=== PATIENT | male | born 1935 | race Caucasian/White ===

== ENCOUNTER → 2016-03-21 | Outpatient (CLI) | payer OTHER, MEDICARE ==
[~2016-03-21] MED LIST: ALL100 PO; ASPEC325 PO; ATOR10TA88 PO; METO50TA16 PO; MULT-506 PO; Pradaxa PO
[2016-03-21 13:12] LABS: BASO % 1.2 %; BASO ABS # 0.06 K/uL (0-0.2); COMPLETE YES; EOS % 2.5 %; HEMATOCRIT 45.5 % (42-52); LYMPH % 29.6 %; LYMPH ABS # 1.44 K/uL (1.2-3.4); MEAN CELL VOLUME 93.2 fL (80-100); MEAN CORPUSCULAR HGB CONC 34.3 g/dl (32-36); MONO % 9.9 %; NEUT % 56.8 %; PLATELET COUNT 176 K/uL (130-400); RED BLOOD COUNT 4.88 M/uL (4.7-6.1); WHITE BLOOD COUNT 4.86 K/uL (4.8-10.8)
[2016-03-21 13:27] LABS: ALT/SGPT 25 U/L (12-78); AST/SGOT 20 U/L (15-37); BLOOD UREA NITROGEN 16 mg/dl (7-18); BUN/CREATININE RATIO 15.9 (10-20); CALCIUM 9.2 mg/dl (8.5-10.1); CARBON DIOXIDE 28 mmol/L (21-32); CHLORIDE 106 mmol/L (98-107); CHOLESTEROL 177 mg/dl (0-200); GLUCOSE 108 mg/dl (70-99); POTASSIUM 4.3 mmol/L (3.5-5.1); SODIUM 142 mmol/L (136-145)
[2016-03-21 13:40] LABS: ALKALINE PHOSPHATASE 60 U/L (45-117); CHOLESTEROL/HDL RATIO 3.5; HDL CHOLESTEROL 50 mg/dl; LDL CHOLESTEROL CALCULATED 102 mg/dl; TRIGLYCERIDES 124 mg/dl (0-150); VERY LOW DENSITY LIPOPROT CALC 25 mg/dl
== END | disposition home or self-care (01) ==
LOC: C.LABBC 10:31
PROVIDERS: ATTEND Internal Medicine
DX: E78.5 Hyperlipidemia, unspecified (principal)

== ENCOUNTER → 2017-03-29 | Outpatient (CLI) | payer OTHER, MEDICARE ==
[~2017-03-29] MED LIST changes: +ATOR10TA82 PO; -ATOR10TA88 PO
--- NOTE | 2017-03-29 12:04 | DIAGNOSTIC IMAGING REPORT ---
CHEST 2 VIEWS ROUTINE CLINICAL HISTORY: Pneumonia COMPARISON STUDY: 02/22/2011 FINDINGS: The cardiac and mediastinal contours are normal. There is no evidence of focal pulmonary consolidation. There is no evidence of failure. No pleural effusions are visualized.[ IMPRESSION: No active disease in the chest. Electronically signed by: Luis Hill M.D. 03/29/2017 12:03 PM Dictated Date/Time: 03/29/2017 12:02 PM
== END | disposition home or self-care (01) ==
LOC: C.RADBC 11:09
PROVIDERS: ATTEND Internal Medicine
DX: Z87.01 Personal history of pneumonia (recurrent) (principal)

== ENCOUNTER 2024-12-20 11:29 | Inpatient (IN) ==
[2024-12-20] MEDS ORDERED: MAGNESIUM HYDROXIDE SUSP 30 ML UDC PO PRN (14:12)
[2024-12-20] MEDS ORDERED: ONDANSETRON INJ 2 MG/ML 2 ML VIAL IV PRN ×2 (14:12→15:25)
[2024-12-20] MEDS ORDERED: ALUMINUM/MAGNESIUM SUSP 30 ML UDC PO PRN (14:12)
[2024-12-20] MEDS ORDERED: POLYETHYLENE (MIRALAX) 17 GM PACK PO PRN (14:12)
[2024-12-20] MEDS ORDERED: PROPOFOL IV EMULSION 10 MG/ML 20 ML VIAL IV ONE (14:36)
[2024-12-20] MEDS ORDERED: LIDOCAINE 2% 2 ML VIAL/AMP(20MG/ML) INFIL ONE (14:36)
--- NOTE | 2024-12-20 14:45 | History & Physical Report ---
Date of Service December 20, 2024 Assessment & Plan (1) Ureterolithiasis: (2) Cardiomyopathy: (3) Heart failure with reduced ejection fraction: (4) Dementia: (5) TIA (transient ischemic attack): Plan #Ureterolithiasis with hydroureterfor urologic intervention today. Continue ceftriaxone for now, follow-up cultures from [facility] and follow his evolution of signs and symptoms. #Atrial fibrillationrate controlled. Chronically anticoagulated. [facility] I believe held his Eliquis. Can resume postop as soon as is safe per urology #chronic systolic CHFhe appears to have a moderately reduced EF. Follows with [facility] cardiology, and fortunately this does not seem to be extremely brittle. He also has a degree of diastolic/HFpEF creating a combined CHF picture given his moderate aortic stenosis, but he does not appear to have frequent hospitalizations for decompensated CHFAlthough he did have an admission at [facility] in late September that did have at least some element of decompensated CHF. resume sacubitril/valsartan once it is clear his hemodynamics are stable as they appear today. #Dementiafollows with PCP and neurologyappears to be assessed as a mixed aging and vascular dementia that is relatively mild with some mild Parkinson's features. Continue to follow mental status while hospitalized #anxietycontinue SSRI #DVT prophylaxisresume Eliquis as soon as is safe postprocedure. #cerebrovascular disease - continue statin Admission and Anticipated Discharge Date Admission Date: December 20, 2024 History of Present Illness Chief Complaint: 9mm ureteral stone, no urology at [facility] Primary Care Provider: Robert Berry DO Patient is a very pleasant 89-year-old male who was transferred to our facility due to a 9 mm kidney stone and lack of urology at [facility]. He was apparently also set for transfer to [facility], but patient and family would prefer staying in [place], understandably. He presented yesterday with a chief complaint of right flank pain. Symptom onset about 8 hours prior to ER evaluation. Tylenol provided mild relief. No fevers dysuria or hematuria. Previously had stones requiring urologic intervention and noted this felt similar. Today on arrival he notes his pain is under good control. He denies any fevers chills or sweats. Denies any chest pain or shortness of breath. Was treated with pain control and ceftriaxone due to concern of infection, started on Flomax. Allergies Allergy/AdvReac Type Severity Reaction Status Date / Time hydrocodone Allergy Unknown Unknown Verified 11/17/24 08:46 Home Medications Medication Instructions Recorded Confirmed Type apixaban 5 mg tablet (Eliquis) 5 mg PO BID #60 tabs 10/10/20 11/13/24 Rx escitalopram oxalate 10 mg tablet 10 mg PO DAILY 10/05/21 11/13/24 History tamsulosin 0.4 mg capsule 0.4 mg PO DAILY 10/05/21 11/13/24 History acetaminophen 325 mg capsule 325 mg PO QID PRN Pain 05/16/22 11/13/24 History (Tylenol) compress.stocking,knee,reg,med #2 ea 03/29/23 11/04/24 Rx gabapentin 300 mg capsule 300 mg PO DAILY 04/01/23 11/13/24 History compress.stocking,knee,reg,med #2 ea 07/03/23 11/04/24 Rx cetirizine 10 mg tablet 10 mg PO DAILY 02/06/24 11/13/24 History lidocaine HCl 4 % topical cream 1 applic topical BID 10/21/24 11/13/24 History (Aspercreme (lidocaine HCl)) omeprazole 40 mg capsule,delayed 40 mg PO DAILY 10/21/24 11/13/24 History release rosuvastatin 10 mg tablet 10 mg PO DAILY 10/21/24 11/13/24 History Al hyd-Mg tr-alg ac-sod bicarb 80 2 tab PO Q4H PRN Acid Reflux 11/13/24 11/13/24 History mg-20 mg chewable tablet cranberry extract 250 mg tablet 250 mg PO TID 11/13/24 11/13/24 History sacubitril 24 mg-valsartan 26 mg 1 tab PO BID 11/13/24 11/13/24 History tablet torsemide 20 mg tablet 20 mg PO Q OTHER DAY 11/13/24 11/13/24 History vitamin B complex 1 tab PO DAILY 11/13/24 11/13/24 History Past Med/Surg History Problem List (Updated 12/20/24 @ 14:45 by Lucien Maradiaga DO) Ureterolithiasis Cardiomyopathy Severe aortic stenosis HLD (hyperlipidemia) HTN, goal below 130/80 Heart failure with reduced ejection fraction Dysphagia Dysphonia Parkinsonism Trigger finger Aortic stenosis Idiopathic polyneuropathy Numbness and tingling in both hands Dementia Cognitive impairment Ambulatory dysfunction Cerebrovascular disease Rotator cuff tear, right COVID-19 (Acute) (HFpEF) heart failure with preserved ejection fraction TIA (transient ischemic attack) Sleep disturbances (Chronic) Sinus bradycardia (Chronic) Sick sinus syndrome (Chronic) Permanent atrial fibrillation (Chronic) Nephrolithiasis (Chronic) Mitral regurgitation (Chronic) 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 Trigger finger TIA (transient ischemic attack) Severe aortic stenosis Parkinsonism Mitral regurgitation Idiopathic polyneuropathy HFrEF (heart failure with reduced ejection fraction) Dysphonia Dysphagia History of COVID-19 Cognitive impairment Gout SSS (sick sinus syndrome) Hx of renal calculi CVD (cerebrovascular disease) Dementia Unspecified hearing loss Sleep disorder Paresthesia of skin Nonrheumatic mitral (valve) insufficiency Hyperlipidemia Difficulty walking Generalized anxiety disorder Carpal tunnel syndrome Bradycardia Atrial fibrillation Sprain of knee Surgical History History of tonsillectomy History of cystoscopy Family History Mother Stroke Myocardial infarction Father Coronary heart disease Kidney disease Aunt Breast cancer Denies family history of Prostate cancer Diabetes Lung cancer Colorectal cancer Social History Smoking Status: Unknown if ever smoked Tobacco Type: Cigars Preferred Language: Unknown Communication Ability: Effective Visual Impairment: Limited Hearing Ability: Normal P[place] Required: No marital status: Current Living Situation: Personal Care Facility Current Living Situation Comment: [facility] current occupational status: retired and 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 HEENT normocephalic atraumatic mucous membranes moist. Cardio is irregularly irregular but rate controlled (rate around 80 whenever I listen to him). Lungs are clear to auscultation bilaterally no rales rhonchi or wheezes good effort. No accessory muscle use. Abdomen is soft nondistended nontender no masses or organomegaly. Extremities are without sinus clubbing or edema no calf tenderness. Neuro shows no focal deficits. Skin without rashes, pallor, icterus. Results & Data Results & Data Diagnostic Findings CT abdomen pelvis from [facility] shows normal liver, normal gallbladder, normal pancreas normal spleen normal appendix, kidneys normal size shape and position bilateral perinephric stranding noted, bilateral nonobstructing renal calculi the largest at the left lower pole measuring 8 mm, and right sided moderate hydro nephro ureter due to a 9 mm calculus in the terminal ureter, left-sided periureteral stranding noted. Aorta shows atherosclerotic changes with an infrarenal focal aneurysms 30 x 26 mm normal prostate, fecal loaded large bowel no bowel obstruction or wall thickening diffuse mesenteric stranding and congestion noted and the slices through the chest show cardiomegaly bilateral peribronchial cuffing and mild bronchiectatic changes. Conclusions being #1 right sided obstructive uropathy due to a distal ureteric stone, #2 bilateral nonobstructing renal calculi. #3 bilateral perinephric and periureteral fat stranding. #4 thick-walled urinary bladder with perivesical fat stranding. #5 enlarged prostate. #6 cardiomegaly with bilateral peribronchial cuffing and mild bronchiectatic changes. PG Care Time/CCT Total # of Minutes Spent Total Time Spent with Patient: Total time spent is greater than 50% in coordination of care (as documented) at patient's floor/unit and/or counseling patient: Coding Level of Care Code 16495 INT INP/OBS CARE 3/75MIN Diagnoses Ureterolithiasis N20.1 Cardiomyopathy I42.9 Heart failure with reduced ejection fraction I50.20 Dementia F03.90 TIA (transient ischemic attack) G45.9
--- NOTE | 2024-12-20 15:19 | Urology Consultation ---
Date of Consultation December 20, 2024 Assessment & Plan (1) Ureterolithiasis: We reviewed the stone seen on his CT scan. It is large enough that it is not likely to pass spontaneously. With the concern for any possible underlying infection, we discussed that an obstructing stone could significantly increase the risk for sepsis. Due to his need for narcotics for pain control, I would recommend that we proceed with cystoscopy, right retrograde pyelogram and right ureteral stent placement. We reviewed risks of surgery including bleeding, infection, injury to urinary tract, inability to place a stent. He and his daughter expressed understanding and would like to proceed with surgery. All questions were answered to the best of my ability. History of Present Illness Reason for Consultation: right ureteral stone Attending Physician: Lucien Maradiaga, History of Present Illness This is an 89-year-old male with history of nephrolithiasis. He has previously undergone surgeries for kidney stones. He started having right-sided flank pain on 12/19/2024 and was brought to an outside facility where workup demonstrated a distal right ureteral stone. Per report, he had a leukocytosis (WBC 14) at the outside facility. Also per report, urine sample demonstrated inflammatory markers raising concern for potential underlying infection. He was started on ceftriaxone at the outside facility and cultures were obtained. He was transferred to [facility] for consideration of surgical intervention. At the bedside he reports that his pain is better controlled with narcotics on board, however he and his daughter report that he does not do well with multiple doses of narcotics. He denies any fevers or chills, although he has had episodes of sepsis from urinary stones in the past. He has recently been on antibiotics for a hand infection as well. He had a CT scan of the abdomen and pelvis performed on 12/20/2024. I independently reviewed these images. Both kidneys are in normal position with mild cortical thinning. There is hydronephrosis of the right side extending down to an 8-9 mm stone in the distal right ureter. Bladder wall appears circumferentially thickened and prostate is normal-appearing. In both kidneys there are nonobstructing stones as well. Allergies Allergy/AdvReac Type Severity Reaction Status Date / Time hydrocodone Allergy Unknown Unknown Verified 11/17/24 08:46 Home Medications Medication Instructions Recorded Confirmed Type apixaban 5 mg tablet (Eliquis) 5 mg PO BID #60 tabs 10/10/20 11/13/24 Rx escitalopram oxalate 10 mg tablet 10 mg PO DAILY 10/05/21 11/13/24 History tamsulosin 0.4 mg capsule 0.4 mg PO DAILY 10/05/21 11/13/24 History acetaminophen 325 mg capsule 325 mg PO QID PRN Pain 05/16/22 11/13/24 History (Tylenol) compress.stocking,knee,reg,med #2 ea 03/29/23 11/04/24 Rx gabapentin 300 mg capsule 300 mg PO DAILY 04/01/23 11/13/24 History compress.stocking,knee,reg,med #2 ea 07/03/23 11/04/24 Rx cetirizine 10 mg tablet 10 mg PO DAILY 02/06/24 11/13/24 History lidocaine HCl 4 % topical cream 1 applic topical BID 10/21/24 11/13/24 History (Aspercreme (lidocaine HCl)) omeprazole 40 mg capsule,delayed 40 mg PO DAILY 10/21/24 11/13/24 History release rosuvastatin 10 mg tablet 10 mg PO DAILY 10/21/24 11/13/24 History Al hyd-Mg tr-alg ac-sod bicarb 80 2 tab PO Q4H PRN Acid Reflux 11/13/24 11/13/24 History mg-20 mg chewable tablet cranberry extract 250 mg tablet 250 mg PO TID 11/13/24 11/13/24 History sacubitril 24 mg-valsartan 26 mg 1 tab PO BID 11/13/24 11/13/24 History tablet torsemide 20 mg tablet 20 mg PO Q OTHER DAY 11/13/24 11/13/24 History vitamin B complex 1 tab PO DAILY 11/13/24 11/13/24 History Patient History Medical History [facility] resident [place] [facility] Trigger finger TIA (transient ischemic attack) Severe aortic stenosis Parkinsonism Mitral regurgitation Idiopathic polyneuropathy HFrEF (heart failure with reduced ejection fraction) Dysphonia Dysphagia History of -19 Cognitive impairment Gout SSS (sick sinus syndrome) Hx of renal calculi CVD (cerebrovascular disease) Dementia Unspecified hearing loss Sleep disorder Paresthesia of skin Nonrheumatic mitral (valve) insufficiency Hyperlipidemia Difficulty walking Generalized anxiety disorder Carpal tunnel syndrome Bradycardia Atrial fibrillation Sprain of knee Surgical History History of tonsillectomy History of cystoscopy Family History Mother Stroke Myocardial infarction Father Coronary heart disease Kidney disease Aunt Breast cancer Denies family history of Prostate cancer Diabetes Lung cancer Colorectal cancer Social History Smoking Status: Current some day smoker Tobacco Type: Cigars Cigarettes Per Day: 5 cigars per week; Second Hand Exposure: No; Do You Dip or Chew Tobacco: No; Tobacco Cessation Education Requested by Patient: No Hx Alcohol Use: Yes Alcohol type: beer, wine and hard liquor Alcohol Intake Frequency Comment: social Hx Substance Use: No Preferred Language: Serbian Communication Ability: Effective Visual Impairment: Limited Hearing Ability: Normal Senior Ssis Developer Required: No Beliefs That Will Affect Care: None marital status: Current Living Situation: Alone and Personal Care Facility Current Living Situation Comment: [facility] current occupational status: retired and 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 Physical Exam Constitutional: well developed and well nourished; no acute distress Eyes: + anicteric sclerae; pupils not irregula r Respiratory: normal respiratory effort; no respiratory distress, does not use accessory muscles and no cough Cardiovascular: well perfused Gastrointestinal (Abdomen): Inspection/Auscultation: abdomen normal to inspection; abdomen not distended Musculoskeletal: Extremities: extremities normal to inspection Skin: normal turgor; no rashes and no lesions Neurologic: moves all extremities and awake Psychiatric: Orientation: alert and oriented x 3 Results & Data Vital Signs (Past 12 Hours) Vital Signs Temp Pulse Resp BP Pulse Ox O2 Del Method 12/20/24 14:17 36.3 C L 99 H 16 109/72 93 Room Air PG Care Time/CCT Total # of Minutes Spent Total Time Spent with Patient: Total time spent is greater than 50% in coordination of care (as documented) at patient's floor/unit and/or counseling patient: Coding Level of Care Code 80852 OP VST NEW MOD 45 MIN Diagnoses Ureterolithiasis N20.1
--- NOTE | 2024-12-20 15:21 | Anesthesiology Consultation ---
Date of Service December 20, 2024 Assessment & Plan (1) Encounter for pre-operative examination: Chart Review Chart Review: Acceptable Risk for Surgery History Surgery Operation Date: 12/20/24 15:00 Proposed Procedures p Cystoscopy Retrograde(Right) - Macho Mantilla MD Height/Weight Height: 5 ft 8 in Weight: 74.843 kg Allergies Allergy/AdvReac Type Severity Reaction Status Date / Time hydrocodone Allergy Unknown Unknown Verified 11/17/24 08:46 Medications Home Medications Medication Instructions Recorded Confirmed Last Taken apixaban 5 mg tablet (Eliquis) 5 mg PO BID #60 tabs 10/10/20 11/13/24 11/16/24 escitalopram oxalate 10 mg tablet 10 mg PO DAILY 10/05/21 11/13/24 11/16/24 tamsulosin 0.4 mg capsule 0.4 mg PO DAILY 10/05/21 11/13/24 11/16/24 acetaminophen 325 mg capsule 325 mg PO QID PRN Pain 05/16/22 11/13/24 Unknown (Tylenol) compress.stocking,knee,reg,med #2 ea 03/29/23 11/04/24 Unknown gabapentin 300 mg capsule 300 mg PO DAILY 04/01/23 11/13/24 11/16/24 compress.stocking,knee,reg,med #2 ea 07/03/23 11/04/24 Unknown cetirizine 10 mg tablet 10 mg PO DAILY 02/06/24 11/13/24 11/16/24 lidocaine HCl 4 % topical cream 1 applic topical BID 10/21/24 11/13/24 11/16/24 (Aspercreme (lidocaine HCl)) omeprazole 40 mg capsule,delayed 40 mg PO DAILY 10/21/24 11/13/24 11/16/24 release rosuvastatin 10 mg tablet 10 mg PO DAILY 10/21/24 11/13/24 11/16/24 Al hyd-Mg tr-alg ac-sod bicarb 80 2 tab PO Q4H PRN Acid Reflux 11/13/24 11/13/24 Unknown mg-20 mg chewable tablet cranberry extract 250 mg tablet 250 mg PO TID 11/13/24 11/13/24 11/16/24 sacubitril 24 mg-valsartan 26 mg 1 tab PO BID 11/13/24 11/13/24 11/16/24 tablet torsemide 20 mg tablet 20 mg PO Q OTHER DAY 11/13/24 11/13/24 11/16/24 vitamin B complex 1 tab PO DAILY 11/13/24 11/13/24 11/16/24 Past Medical History Medical History (Updated 12/20/24 @ 15:22 by Pedro Ibarra MD) Hypertension long-term resident [facility] Trigger finger TIA (transient ischemic attack) Severe aortic stenosis Parkinsonism Mitral regurgitation Idiopathic polyneuropathy HFrEF (heart failure with reduced ejection fraction) Dysphonia Dysphagia History of COVID-19 Cognitive impairment Gout SSS (sick sinus syndrome) Hx of renal calculi CVD (cerebrovascular disease) Dementia Unspecified hearing loss Sleep disorder Paresthesia of skin Nonrheumatic mitral (valve) insufficiency Hyperlipidemia Difficulty walking Generalized anxiety disorder Carpal tunnel syndrome Bradycardia Atrial fibrillation Sprain of knee Past Family History Family History Mother Stroke Myocardial infarction Father Coronary heart disease Kidney disease Aunt Breast cancer Denies family history of Prostate cancer Diabetes Lung cancer Colorectal cancer Past Surgical History Surgical History History of tonsillectomy History of cystoscopy Social History Smoking Status: Current some day smoker Smoking cigarettes per day: 5 cigars per week Do You Dip or Chew Tobacco: No Hx Alcohol Use: Yes Alcohol type: beer, wine and hard liquor alcohol intake frequency: holidays/special occasions only Hx Substance Use: No substance use type: does not use Physical Exam Vital Signs Last Vital Signs Temp 36.3 C L 12/20/24 14:17 Pulse 99 H 12/20/24 14:17 Resp 16 12/20/24 14:17 BP 109/72 12/20/24 14:17 Pulse Ox 93 12/20/24 14:17 O2 Del Method Room Air 12/20/24 14:17 Testing Echocardiogram Date: 11/04/24 EF: 40-45% Valvular Disease: + (moderate - max grad 21mmHg)
[2024-12-20] MEDS ORDERED: ATROPINE SULFATE 0.1 MG/ML 10ML SYR IV PRN (15:25)
--- NOTE | 2024-12-20 16:09 | Operative Report ---
PG Post Operative Report Pre & Post Diagnosis Operation Date: 12/20/24 15:00 Pre-Op Diagnosis: Ureteral lithiasis Post-Op Diagnosis: Ureteral lithiasis I identified the patient and participated in the time-out.: Yes Procedure Operation Date: 12/20/24 15:00 Actual Procedures p Cystoscopy, Right Retrograde Pyelogram, Insertion of Ureteral Stent- Right(Right) - Macho Mantilla MD Surgeon Macho Mantilla MD Churn Driller None Estimated Blood Loss 0 Findings See Below Successful right ureteral stent placement. Urine in the bladder with some blood. Dark red/maroon urine from the right kidney aspirated and sent for culture. Specimens Urine from right kidney for culture Drains 6 Polish x 26 cm double-J ureteral stent in the right ureter Anesthesia Type MAC Complications none Disposition Accompanied Patient To Recovery: Yes Disposition: Recovery Room Indications This is an 89-year-old male who was transported to [facility] with a right ureteral stone as well as ongoing pain and concern for possible underlying urinary tract infection. He is brought to the OR for right ureteral stent placement. Description of Procedure The patient was identified in the holding area and informed consent was confirmed. He was marked on the right side, then was taken to the operating room where anesthesia was initiated. He was placed in the dorsal lithotomy position with all pressure points appropriately padded. He was prepped and draped in the usual sterile fashion and a preoperative timeout was performed. A well-lubricated cystoscope was inserted per urethra and panendoscopy was performed. The pendulous urethra was normal with no strictures or mucosal abnormalities. The prostate was of normal size. The initial urine from the bladder was dark maroon. This was evacuated and the bladder was flushed to improve visualization. His bladder was trabeculated with no tumors or stones appreciated. Ureteral orifices were in orthotopic position bilaterally. I used a 0.038 inch zip wire and 5 Polish open-ended catheter to cannulate the right ureteral orifice. The open-ended catheter was advanced to approximately the level of the kidney. A sample of urine was aspirated at this point. The urine from this area was also dark maroon. A sample was collected and sent for urine culture. Retrograde pyelogram was performed through the open-ended catheter using Cystografin. There was mild hydronephrosis of the kidney. The zip wire was then reintroduced. Over the wire, a 6 Polish x 26 cm double-J ureteral stent was advanced. When the wire was removed, there was a good curl in the kidney under fluoroscopic guidance. There was drainage of cloudy/maroon urine from the kidney down to the bladder. A curl of the stent was visualized in the bladder with the cystoscope. At this point the bladder was drained and all instrumentation was removed. The patient was then awakened from anesthesia and was brought to the PACU in stable condition. I attest to the content of the Intraoperative Record and any orders documented therein. Any exceptions are noted below.
[2024-12-20] MEDS: DIATRIZOATE MEGLUMINE 30% 100ML VIAL INSTIL ONE (16:10)
--- NOTE | 2024-12-20 16:28 | Anesthesiology Progress Note ---
Date of Service December 20, 2024 Anesthesia Post Procedure Vital Signs Vital Signs: Temp Pulse Pulse Resp BP Pulse Ox O2 Del Method 12/20/24 16:23 36.4 C L 89 23 102/65 97 Room Air 12/20/24 16:15 86 22 109/84 96 Room Air 12/20/24 16:07 36.3 C L 82 14 112/72 95 Room Air 12/20/24 14:17 36.3 C L 99 H 16 109/72 93 Room Air Transfer of Care Handoff Completed per policy Notes Mental Status: alert / awake / arousable Patient Amnestic to Procedure: Yes Nausea / Vomiting: adequately controlled Pain: adequately controlled Airway Patency, RR, SpO2: stable & adequate BP & HR: stable & adequate Hydration State: stable & adequate Anesthetic Complications: no major complications apparent
[2024-12-20 16:49] VITALS: RESP 18
[2024-12-20] MEDS: cefTRIAXone SODIUM 2,000 MG/50 ML BAG IV SCH (16:50)
[2024-12-20] MEDS: MELATONIN 3 MG TAB PO PRN (20:19)
[2024-12-20] MEDS: VALSARTAN/SACUBITRIL 26/24MG TAB PO SCH (20:19)
[2024-12-20] MEDS: APIXABAN 5 MG TABLET PO SCH (20:19)
[2024-12-21] MEDS: ACETAMINOPHEN 325 MG TAB PO PRN (03:38)
[2024-12-21 06:20] LABS: Hematocrit (blood only) 38.6 % (42.0-52.0); Hemoglobin 12.2 g/dl (14.0-18.0); Immature Granulocytes # (auto) 0.02 K/uL (0.01-0.20); Immature Granulocytes % (auto) 0.2 %; Mean Corpuscular Hemoglobin 27.9 pg (25.0-34.0); Mean Corpuscular Volume 88.1 fL (80.0-100.0); Platelet Count 195 K/uL (130-400); RDW Standard Deviation 51.0 fL (36.4-46.3); Red Blood Count 4.38 M/uL (4.70-6.10); White Blood Count 8.38 K/ul (4.8-10.8)
[2024-12-21 07:17] LABS: Anion Gap 7.0 (3-11); Blood Urea Nitrogen 18.0 mg/dl (6-23); Calcium 8.7 mg/dl (8.6-10.3); Carbon Dioxide 25.0 mmol/L (21-32); Chloride 106.0 mmol/L (98-107); Creatinine Clr Calc Pharmacy 50.9 ml/min; Glucose 100.0 mg/dl (70-99(Fasting)); Potassium 4.2 mmol/L (3.5-5.1); Sodium 138.0 mmol/L (136-145)
[2024-12-21] MEDS: GABAPENTIN 300 MG CAP PO SCH (08:18)
[2024-12-21] MEDS: CETIRIZINE HCL 10 MG TABLET PO SCH (08:18)
[2024-12-21] MEDS: ROSUVASTATIN CALCIUM 10 MG TAB PO SCH (08:18)
[2024-12-21] MEDS: ESCITALOPRAM OXALATE 10 MG TAB PO SCH (08:18)
[2024-12-21] MEDS: TAMSULOSIN HCL 0.4 MG CAP PO SCH (08:18)
[2024-12-21] MEDS: METOPROLOL SUCC 25MG EXT REL TAB PO SCH (08:22)
--- NOTE | 2024-12-21 11:51 | Fluoroscopy Report ---
FL retrograde includes kub CLINICAL HISTORY: RT SIDE CYSTO STENT COMPARISON STUDY: None FLUOROSCOPY TIME: 3 seconds FLUOROSCOPY IMAGES: 3 EXPOSURE DOSE: 0.7 mGy FINDINGS: Fluoroscopy was provided for urologic procedure. IMPRESSION: Intraoperative fluoroscopy. ACT 112: Negative or not required by law. Electronically signed by: William Delacruz M.D. 12/21/2024 11:50 AM
[2024-12-21] MEDS: PHENAZOPYRIDINE HCL 100 MG TAB PO PRN (13:03)
--- NOTE | 2024-12-21 15:25 | Urology Progress Note ---
<Statement entered by Macho Mantilla MD - 12/21/24 15:48> 89-year-old male s/p ureteral stent placement on 12/20/2024. Continue to follow urine cultures, agree with fluconazole for now. No plan for further intervention at this point. Urology will arrange outpatient follow-up. Date of Service December 21, 2024 Assessment & Plan (1) Ureterolithiasis: Plan Postop day #1 status post cystoscopy and right ureteral stent placement Tolerating the stent with minimal bother Afebrile and hemodynamically stable Labs show no leukocytosis and creatinine 0.99 Urine kidney aspirate preliminary Orly albicans - Fluconazole added today Continues on ceftriaxone Will arrange outpatient follow-up with our service to discuss definitive stone treatment. Continue antibiotics and tailor per culture sensitivities Continue supportive care and management per primary team Urology will sign off, please contact us with any further question/concerns or changes in patient status Admission and Anticipated Discharge Date Admission Date: December 20, 2024 Subjective Patient was seen at bedside this morning. Awake and resting in bed on arrival. No acute distress. Tolerating the stent with minimal bother. No fevers or chills. Review of Systems Constitutional: as per Subjective / HPI Genitourinary: + as per Subjective / HPI Physical Exam Constitutional: no acute distress Respiratory: no respiratory distress and no labored breathing Neurologic: awake Psychiatric: Orientation: alert, oriented x 3 and cooperative Results & Data Vital Signs (Past 12 Hours) Vital Signs Temp Pulse Pulse Resp BP Pulse Ox O2 Del Method 12/21/24 13:45 78 12/21/24 12:37 36.4 C L 86 18 109/76 95 Room Air 12/21/24 08:00 104 H 12/21/24 08:00 36.5 C 77 18 113/78 95 Room Air 12/21/24 03:45 36.6 C 103 H 18 130/89 94 Room Air PG Care Time/CCT Total # of Minutes Spent Total Time Spent with Patient: Total time spent is greater than 50% in coordination of care (as documented) at patient's floor/unit and/or counseling patient: Coding Level of Care Code 61251 SUB INP/OBS CARE 2/35MIN Diagnoses Ureterolithiasis N20.1
--- NOTE | 2024-12-21 16:31 | Hospitalist Progress Note ---
Date of Service December 21, 2024 Assessment & Plan (1) Ureterolithiasis: (2) Cardiomyopathy: (3) Heart failure with reduced ejection fraction: (4) Dementia: (5) TIA (transient ischemic attack): (6) Complicated UTI (urinary tract infection): (7) Candidal UTI (urinary tract infection): Plan #Ureterolithiasis with hydroureter - S/p stent placement with Dr. Mantilla. Urine culture growing Orly albicans - start on Fluconazole, discontinue ceftriaxone [facility] without Growth pyridium prn dysuria PT/OT for return to [facility] #Atrial fibrillation Continue Eliquis Concern regarding metoprolol and dose - patient has been on and off of this. Discussed with cardiology reecommend metoprolol succ 25mg daily. Daughter requesting cardiology consultation - discussed with them and they will speak to her #chronic systolic CHFhe appears to have a moderately reduced EF and aortic stenosis. Follows with [facility] cardiology, continue sacubitril/valsartan #Dementiafollows with PCP and neurologyappears to be assessed as a mixed aging and vascular dementia that is relatively mild with some mild Parkinson's features. Continue to follow mental status while hospitalized #anxietycontinue SSRI #cerebrovascular disease - continue statin Dispo: contiunued inpatient stay, PT eval pending, hopeful d/c to [facility] tomorrow DVT proh: Eliquis Discussed with cardiology Daughter updated by phone 12/21 Admission and Anticipated Discharge Date Admission Date: December 20, 2024 Supervising Physician Co-Signing Physician Notes Attending Attestation - Chart reviewed, care plan d/w VISHAL Yang. I agree w/ the garg components of her documentation with the following addition - * complicated UTI 2nd to orly albicans * candidal UTI Darío Hough MD Subjective lying in bed - reports some pain with urination. Does report having stents in the past Called and spoke with daughter - she believes there may have been some miscommunication regarding his beta blockers. She thought he was taken off it, our last cardiology note says to continue at 50. She reports low HR at [facility]. Tele - Afib 100-140s, but has been 70-80s after administration of metoprolol Review of Systems Review of Systems: All systems reviewed & are unremarkable except as noted in Subjective Physical Exam Physical Exam: General: NAD, VS as above Resp: normal respiratory effort, lungs clear to auscultation CV: afib, no murmur, Abd: normal bowel sounds, non tender, soft Extremities: Moves all extremities, no edema Neuro: A&O x2 Skin: intact, no lesions noted Results & Data Results & Data Vital Signs (Past 12 Hours) Vital Signs Temp Pulse Pulse Resp BP Pulse Ox O2 Del Method 12/21/24 15:56 97.9 F 88 18 109/75 95 Room Air 12/21/24 15:31 97.5 F L 86 18 109/76 95 12/21/24 13:45 78 12/21/24 12:37 97.5 F L 86 18 109/76 95 Room Air 12/21/24 08:00 104 H 12/21/24 08:00 97.7 F 77 18 113/78 95 Room Air Laboratory Results cbc and chemistry reviewed PG Care Time/CCT Total # of Minutes Spent Total Time Spent with Patient: Total time spent is greater than 50% in coordination of care (as documented) at patient's floor/unit and/or counseling patient: Coding Level of Care Code 99818 SUB INP/OBS CARE 3/50MIN Diagnoses Ureterolithiasis N20.1 Cardiomyopathy I42.9 Heart failure with reduced ejection fraction I50.20 Dementia F03.90 TIA (transient ischemic attack) G45.9 Complicated UTI (urinary tract infection) N39.0 Candidal UTI (urinary tract infection) B37.49
[2024-12-22 06:20] LABS: Anion Gap 6.0 (3-11); Blood Urea Nitrogen 16.0 mg/dl (6-23); Calcium 8.9 mg/dl (8.6-10.3); Carbon Dioxide 27.0 mmol/L (21-32); Chloride 104.0 mmol/L (98-107); Creatinine Clr Calc Pharmacy 49.9 ml/min; Glucose 117.0 mg/dl (70-99(Fasting)); Potassium 4.2 mmol/L (3.5-5.1); Sodium 137.0 mmol/L (136-145)
[2024-12-22] MEDS: FLUCONAZOLE 100 MG TAB PO SCH (09:18)
[2024-12-22] MEDS: TORSEMIDE 20 MG TAB PO SCH (09:20)
--- NOTE | 2024-12-22 12:06 | Discharge Summary ---
Discharge Summary Date of Service December 22, 2024 Principal Dx & Hospital Course #1 = Principal Diagnosis (1) Ureterolithiasis: (2) Cardiomyopathy: (3) Heart failure with reduced ejection fraction: (4) Dementia: (5) TIA (transient ischemic attack): (6) Complicated UTI (urinary tract infection): (7) Candidal UTI (urinary tract infection): Plan #Ureterolithiasis with hydroureter - S/p stent placement with Dr. Mantilla. Urine culture growing Maureen albicans - start on Fluconazole, plan for 14-day total course. No bacteria regular to culture so we will discontinue antibiotics. Can use Pyridium or Tylenol for pain control. Outpatient follow-up with urology for stone treatment. PT has cleared patient for [facility] #Atrial fibrillation - continue Eliquis. patient was taken off his beta- ricci but it seems there may have been a miscommunication, patient is in permanent A-fib and is at much lower risk of sick sinus syndrome. patient had an episode of tachycardia to the 140s with exertion. Discussed with cardiology recommend restarting metoprolol succinate 25 mg daily, patient's heart rate has been well-controlled since this initiation. New prescription sent and recommend cardiology follow-up in 4 to 6 weeks #chronic systolic CHFhe appears to have a moderately reduced EF and aortic stenosis. Follows with [facility] cardiology, continue sacubitril/valsartan. 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 mental status stable during inpatient stay #anxietycontinue SSRI #cerebrovascular disease - continue statin Dispo: [facility], outpatient cardiology and urology follow- up Notes For Next Care Provider Medication Changes From Visit started metoprolol 25 mg daily Admission HPI Per Admitting Provider Patient is a very pleasant 89-year-old male who was transferred to our facility due to a 9 mm kidney stone and lack of urology at [facility]. He was apparently also set for transfer to [facility], but patient and family would prefer staying in [place], understandably. He presented yesterday with a chief complaint of right flank pain. Symptom onset about 8 hours prior to ER evaluation. Tylenol provided mild relief. No fevers dysuria or hematuria. Previously had stones requiring urologic intervention and noted this felt similar. Today on arrival he notes his pain is under good control. He denies any fevers chills or sweats. Denies any chest pain or shortness of breath. Was treated with pain control and ceftriaxone due to concern of infection, started on Flomax. Discharge Exam General: NAD, VS as above Resp: normal respiratory effort, lungs clear to auscultation CV: afib, no murmur, Abd: normal bowel sounds, non tender, soft Extremities: Moves all extremities, no edema Neuro: A&O x2 Skin: intact, no lesions noted Discharge Plan Discharge Items Patient Disposition: Personal Custodial Reason For Visit: URETERAL LITHIASIS Discharge Diagnosis: Kidney stone - UTI Activity: Resume your previous activity Non-emergency contact: Primary Care Provider and Tub Rider Call non-emergency contact if: you have any medication questions, your symptoms worsen and your temperature is above 101 Follow-up/Referrals: Juan M Guillen MD [Physician] - (afib - follow up within 4-6 weeks ) Macho Mantilla MD [Physician] - 01/11/25 9:00 am (f/u for stone treatment ) Robert Berry DO [Primary Care Provider] - 12/28/24 2:00 pm (follow up within one week ) Diet: Heart Healthy Liquid Consistency: [place] thick Addtl Attending Provider Instructions: Mr. López You were hospitalized after having flank pain found to be from kidney stones. You were seen by urology and taken to the OR to have a stent placed on 12/[address] Mantilla. Your urine was also concerning for a fungal infection so you have been started on antifungals, these will be continued at discharge. You will need to follow up with urology for stent removal and stone treatment. Medication Changes/Recommendations: * Continue flomax daily while stent in place - this is to help with easier pass age of urine * Pyridium as needed for pain with urination - this can cause your urine/feces to be discolored/orange * Fluconazole - antifungal. Please take the entire course, even if you feel well. * Pain control - pyridium, tylenol as needed It is normal to still have discomfort in the flank area while the stent is in place, this pain may be worse with movement. Blood tinged urine can also be c ommon. If you are having persistent dark bloody urine or thick bloody urine for >8 hours please contact your urologist. It is important that you are staying hydrated while the stent is in place. The urology office should be contacting you to schedule and appointment. If you do not hear from them by Saturday please contact them at [phone] Please contact the urologist if you have any uncontrolled pain, fevers > 100F, or inability to urinate. There were also concerns about your heart rate - it was over 100s when you were moving around. We restarted your metoprolol at 25mg, which is lower than what you were on before. So far you heart rate has had great control while on this. Please follow up with Dr. Guillen in the next 4-6 weeks to recheck. You were cleared by PT to return back to [facility]. Activity: You can do normal everyday activities as your body allows. Take rest breaks if you feel tired. Do not overexert. Stop activity if you have pain, shortness of breath or feel dizzy. Follow-up appointments: Make an appointment with your primary care physician within one week of discharge. A copy of this summary will be sent to them. Every time you see your primary care physician, or any other doctor, bring your medication list, and a list of questions. CONTACT YOUR PRIMARY CARE PROVIDER if you experience any of the following: Shortness of breath or difficulty breathing Fevers or chills Feeling tired with normal activity or experiencing dizziness or fainting Difficulty following your treatment plan, or difficulty taking medications CALL 911 OR GO TO THE EMERGENCY DEPARTMENT if you experience any of the following: Severe abdominal pain or nausea/vomiting Severe chest pain, or chest pain that radiates (moves) to your jaw or arm Sudden, severe shortness of breath or difficulty breathing Thank you for allowing us to participate in your care. Pending Studies at Discharge: No Stand-Alone Forms: My [employer], Smoking Cessation Skilled Items Patient informed of condition?: Yes DNR: No Discharge Level of Care: Other Communicable Disease: No Discharge Prognosis: Stable Lines: None Urinary Catheter: No Medications and DC Order Prescriptions: New phenazopyridine [Pyridium] 100 mg Tablet 100 mg PO TID PRN (Reason: dysuria) Qty: 6 0RF Continued Eliquis 5 mg tablet 5 mg PO BID Qty: 60 5RF (DME) compress.stocking,knee,reg,med Misc See Rx Instructions .Route Qty: 2 0RF Rx Instructions: As directed (DME) compress.stocking,knee,reg,med Misc See Rx Instructions .Route Qty: 2 0RF Rx Instructions: As directed acetaminophen [Tylenol] 325 mg capsule 325 mg PO QID PRN (Reason: Pain) tamsulosin 0.4 mg capsule 0.4 mg PO DAILY escitalopram oxalate 10 mg tablet 10 mg PO DAILY gabapentin 300 mg capsule 300 mg PO DAILY omeprazole 40 mg capsule,delayed release(DR/EC) 40 mg PO DAILY rosuvastatin 10 mg tablet 10 mg PO DAILY lidocaine HCl [Aspercreme (lidocaine HCl)] 4 % cream 1 applic topical BID torsemide 20 mg tablet 20 mg PO Q OTHER DAY vitamin B complex Tablet 1 tab PO DAILY Al hyd-Mg tr-alg ac-sod bicarb 80-20 mg Tablet,Chewable 2 tab PO Q4H PRN (Reason: Acid Reflux) cranberry extract 250 mg Tablet 250 mg PO TID sacubitril-valsartan 24-26 mg Tablet 1 tab PO BID No Action doxycycline hyclate 100 mg capsule 100 mg PO BID 10 Days Qty: 20 0RF loratadine 10 mg tablet 10 mg PO QDAY PRN (Reason: allergy symptoms) Qty: 30 0RF metoprolol succinate 25 mg tablet extended release 24 hr 25 mg PO QAM Qty: 30 2RF Discharge Orders: Discharge Order (Routine); Ordered 12/22/24 Ordered By: Audra Yang Admission Data Admit Date/Time: 12/20/24 13:58 Attending Provider: Darío Hough Admit Provider: Lucien Maradiaga Primary Care Provider: Robert Berry Other Providers: Macho Mantilla; Jack David Other Interventions: Discharge Summary Assessment (RN) Last Done: 12/22/24 17:28 Hospital Stay Data Consultations 12/20/24 14:12 Consult Urology Routine 12/21/24 12:42 Consult Cardiology Routine Procedures Performed Operation Date: 12/20/24 15:00 Actual Procedures p Cystoscopy, Right Retrograde Pyelogram, Insertion of Ureteral Stent- Right(Right) - Macho Mantilla MD Diagnostic Imagining Performed = Pending Results Patient Have Any Pending Studies at Discharge: No Discharge Instructions Given to Patient (Per Discharging Provider) Mr. Maribel Dowd were hospitalized after having flank pain found to be from kidney stones. You were seen by urology and taken to the OR to have a stent placed on 12/[address] Mantilla. Your urine was also concerning for a fungal infection so you have been started on antifungals, these will be continued at discharge. You will need to follow up with urology for stent removal and stone treatment. Medication Changes/Recommendations: * Continue flomax daily while stent in place - this is to help with easier passage of urine * Pyridium as needed for pain with urination - this can cause your urine/feces to be discolored/orange * Fluconazole - antifungal. Please take the entire course, even if you feel well. * Pain control - pyridium, tylenol as needed It is normal to still have discomfort in the flank area while the stent is in place, this pain may be worse with movement. Blood tinged urine can also be common. If you are having persistent dark bloody urine or thick bloody urine for >8 hours please contact your urologist. It is important that you are staying hydrated while the stent is in place. The urology office should be contacting you to schedule and appointment. If you do not hear from them by Saturday please contact them at [phone] Please contact the urologist if you have any uncontrolled pain, fevers > 100F, or inability to urinate. There were also concerns about your heart rate - it was over 100s when you were moving around. We restarted your metoprolol at 25mg, which is lower than what you were on before. So far you heart rate has had great control while on this. Please follow up with Dr. Guillen in the next 4-6 weeks to recheck. You were cleared by PT to return back to [facility]. Activity: You can do normal everyday activities as your body allows. Take rest breaks if you feel tired. Do not overexert. Stop activity if you have pain, shortness of breath or feel dizzy. Follow-up appointments: Make an appointment with your primary care physician within one week of judi whittington. A copy of this summary will be sent to them. Every time you see your primary care physician, or any other doctor, bring your medication list, and a list of questions. CONTACT YOUR PRIMARY CARE PROVIDER if you experience any of the following: Shortness of breath or difficulty breathing Fevers or chills Feeling tired with normal activity or experiencing dizziness or fainting Difficulty following your treatment plan, or difficulty taking medications CALL 911 OR GO TO THE EMERGENCY DEPARTMENT if you experience any of the fo llowing: Severe abdominal pain or nausea/vomiting Severe chest pain, or chest pain that radiates (moves) to your jaw or arm Sudden, severe shortness of breath or difficulty breathing Thank you for allowing us to participate in your care. Supervising Physician Co-Signing Physician Notes Attending Attestation and Discharge Note: Chart reviewed, discharge care plan d/w VISHAL Yang. I agree w/ the garg components of her discharge documentation. Of note - I did not perform a bedside visit or exam on day of discharge. 89yo male with history of atrial fibrillation, chronic systolic CHF, dementia, anxiety. Presented as a transfer from [facility] due to a 9mm distal right-sided ureteral kidney stone with resulting hydronephrosis. BPH and bladder wall thickening also noted on same CT. On 12/20 Dr Macho Mantilla from [facility] performed cystoscopy with right-sided ureteral stent placement. Urine cx grew maureen albicans. Will Rx with 14-day course of diflucan for such. In addition to the above he had a.fib with RVR. Resumed on meto succ 25mg daily for rate control. No bradycardia was seen on such. He will continue on Eliquis for his a.fib. He will need f/u with [facility]rology in the next 1-2 weeks post-discharge for definitive stone & stent management. Darío Hough MD Total Time Total Time Spent Total Time Spent (In Minutes): Time spent day of discharge 40 minutes including direct patient care, medication reconciliation, documentation, review of labs and images, and coordination of care. case discussed with case management Coding Level of Care Code 14588 INP/OBS DISCH >30 MIN Diagnoses Ureterolithiasis N20.1 Cardiomyopathy I42.9 Heart failure with reduced ejection fraction I50.20 Dementia F03.90 TIA (transient ischemic attack) G45.9 Complicated UTI (urinary tract infection) N39.0 Candidal UTI (urinary tract infection) B37.49
[2024-12-22 15:52] VITALS: BP 107/65; PULSE 76; TEMP 98.1; O2SAT 92
== END 2024-12-22 18:18 | disposition home or self-care (01) | DRG 660 ==
LOC: 4W 13:58 → SUATTDRO 13:58

== ENCOUNTER 2024-12-22 20:13 | Observation (INO) ==
--- NOTE | 2024-12-22 20:17 | Emergency Department Note ---
Impression & Plan Ventricular tachycardia, non-sustained, Chronic anticoagulation, A-fib, Elevated troponin, CHI (closed head injury) ED Provider Note NAME: JOSETTE CAI AGE: 89 SEX: M : 1935 ARRIVES VIA: Ambulance INFORMANT: Patient, ED PROVIDER(S): Rudi Low MD CHIEF COMPLAINT: Fall, closed head injury MEDICAL DECISION MAKING: Patient presents as above. CT head obtained. Patient has no other acute trauma. He had concerns initially but his right elbow patient is left-hand dominant but the patient does not have any obvious pain or swelling to the right elbow and has good range of motion. While on the monitor there was concern that the patient may have had a run of VT 6 beats nonsustained. Patient does have a known history of A-fib. IV was established and blood work was obtained to check electrolytes. Patient's blood work shows a normal white count hemoglobin of 12.4 with a normal platelet count. The patient's kidney function is unremarkable. BSG 177. Initial troponin 59.7. Given the patient's run of nonsustained VT with elevated troponin even though the patient is asymptomatic Alvarez believe the patient would benefit from admission workup. TSH is elevated but free T4 is normal. Did speak with the on-call hospitalist Dr. Bedolla and did send a photo through secure [place] text of the patient's rhythm strip. Discussion w/ other healthcare providers: Dr. Bedolla inpatient medicine service Prior /Outside records reviewed: None Differential diagnosis: Fracture, dislocation, contusion, strain, sprain, ICH, hemothorax, intra- abdominal injury, anemia among other causes were considered. Diagnostics, as interpreted by me: ECG: A-fib, rate of 89, normal QRS duration, nor left axis deviation, no obvious ST elevations. Cardiac monitoring: An order was placed for continuous cardiac monitoring. The monitor shows a rate of 85 with regular irregular rhythm. Patient was placed on pulse oximetry Medical decision rules: Giles head CT rule Imaging studies: I informally interpreted the patient's CT head with formal report to follow. Patient presents due to concern for HPI: Patient presents due to concern for fall and head strike. The patient is a resident at [facility]. The patient states that he was finishing his dinner when he tried to get up and his walker was to the right and when he did so he slightly missed stepped lost his balance falling backward and striking the back of his head. Patient reportedly does take Eliquis. Review the chart does show he has a history of A-fib. He thought initially he might of hurt his elbow on the right side but no longer feels as though he has any pain. He may have struck this but no further pain. Patient is left-hand dominant. He denies any chest back or abdominal pain. No neck pain. He currently denies any headache. He denies any LOC or nausea. PAST MEDICAL HISTORY: See Below PAST SURGICAL HISTORY: See Below SOCIAL HISTORY: See Below HOME MEDICATIONS: See Below ALLERGIES: See Below VITALS: See Below PHYSICAL EXAMINATION: Primary Survey Airway: Intact Breathing: Normal, breath sounds equal bilaterally Circulation: Skin warm, well perfused, capillary refill less than 2 seconds Disability Pupils: Equal and reactive to light, 3mm, brisk GCS: 15, E = 4 V=5 M= 6 Motor Function: Moves all extremities. Sensory: No deficits Secondary Survey GENERAL: NAD, non-toxic. HEAD: Normocephalic, atraumatic. EYE EXAM: Normal conjunctiva. PERRL, no anisocoria and EOM's grossly intact w/o pain. OROPHARYNX: Moist mucus membranes. Grossly normal dentition. NECK: Supple, trachea midline, no midline C spine TTP. Chest: No reproducible chest wall pain. LUNGS: Clear to auscultation. Normal chest wall mechanics. HEART: Irregularly irregular, no MRG. ABDOMEN: Abdomen soft, non-tender, no obvious bruising, normo-active bowel sounds, no masses, no rebound or guarding. BACK: No CVA TTP. No midline thoracic or lumbar TTP. SKIN: No rashes and no bruising. UPPER EXTREMITIES: Upper extremities are grossly normal. Well-perfused and compartments are soft throughout. LOWER EXTREMITIES: Grossly normal, no edema. Well-perfused and compartments are soft throughout. NEURO EXAM: A&O x3, cranial nerves II-XII grossly intact, normal speech, moves all 4 extremities. Past Med/Surg History Problem List (Updated 12/23/24 @ 00:08 by Rudi Low MD) CHI (closed head injury) (Acute) Elevated troponin (Acute) A-fib (Acute) Chronic anticoagulation (Acute) Ventricular tachycardia, non-sustained (Acute) Encounter for pre-operative examination Ureterolithiasis Cardiomyopathy Severe aortic stenosis HLD (hyperlipidemia) HTN, goal below 130/80 Heart failure with reduced ejection fraction Dysphagia Dysphonia Parkinsonism Trigger finger Aortic stenosis Idiopathic polyneuropathy Numbness and tingling in both hands Dementia Cognitive impairment Ambulatory dysfunction Cerebrovascular disease Rotator cuff tear, right COVID-19 (Acute) (HFpEF) heart failure with preserved ejection fraction TIA (transient ischemic attack) Sleep disturbances (Chronic) Sinus bradycardia (Chronic) Sick sinus syndrome (Chronic) Permanent atrial fibrillation (Chronic) Nephrolithiasis (Chronic) Mitral regurgitation (Chronic) 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) Hyperlipidemia (Chronic) Hearing loss (Chronic) Gout, joint (Chronic) Carpal tunnel syndrome, bilateral Chronic anticoagulation (Chronic) Other and unspecified hyperlipidemia (Chronic 03/20/10) Generalized anxiety disorder (Chronic) Medical History Hypertension long-term resident [place] [facility] [place] Trigger finger TIA (transient ischemic attack) Severe aortic stenosis Parkinsonism Mitral regurgitation Idiopathic polyneuropathy HFrEF (heart failure with reduced ejection fraction) Dysphonia Dysphagia History of COVID-19 Cognitive impairment Gout SSS (sick sinus syndrome) Hx of renal calculi CVD (cerebrovascular disease) Dementia Unspecified hearing loss Sleep disorder Paresthesia of skin Nonrheumatic mitral (valve) insufficiency Hyperlipidemia Difficulty walking Generalized anxiety disorder Carpal tunnel syndrome Bradycardia Atrial fibrillation Sprain of knee Surgical History History of tonsillectomy History of cystoscopy Family History Mother Stroke Myocardial infarction Father Coronary heart disease Kidney disease Aunt Breast cancer Denies family history of Prostate cancer Diabetes Lung cancer Colorectal cancer Social History Smoking Status: Current some day smoker Tobacco Type: Cigars Cigarettes Per Day: 5 cigars per week; Second Hand Exposure: No; Do You Dip or Chew Tobacco: No; Hx Alcohol Use: Yes Alcohol type: beer, wine and hard liquor Alcohol Intake Frequency Comment: social Hx Substance Use: No Preferred Language: German Communication Ability: Effective Visual Impairment: Limited Hearing Ability: Normal Commercial Appraiser Required: No Beliefs That Will Affect Care: None marital status: Current Living Situation: Alone and Personal Care Facility Current Living Situation Comment: [place] current occupational status: retired and 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 How many Children do You have: 1 Feels Safe at Home: Yes Childhood Exposure to Second-Hand Smoke: Yes Diet: regular caffeine: Yes (coffee and tea ) Dental Care, Regularly: Yes Physical Activity Frequency: Daily Physical Activity Frequency Comment: walk, stength Seatbelt Use: always Sunscreen Use: No Assistive Devices: Walker Allergies Allergies Allergy/AdvReac Type Severity Reaction Status Date / Time hydrocodone Allergy Unknown Unknown Verified 11/17/24 08:46 Home Meds Home Medications Medication Instructions Recorded Confirmed escitalopram oxalate 10 mg tablet 10 mg PO DAILY 10/05/21 12/22/24 tamsulosin 0.4 mg capsule 0.4 mg PO DAILY 10/05/21 12/22/24 acetaminophen 325 mg capsule 325 mg PO QID PRN Pain 05/16/22 12/22/24 (Tylenol) gabapentin 300 mg capsule 300 mg PO DAILY 04/01/23 12/22/24 cetirizine 10 mg tablet 10 mg PO DAILY 02/06/24 12/22/24 lidocaine HCl 4 % topical cream 1 applic topical BID 10/21/24 12/22/24 (Aspercreme (lidocaine HCl)) omeprazole 40 mg capsule,delayed 40 mg PO DAILY 10/21/24 12/22/24 release rosuvastatin 10 mg tablet 10 mg PO DAILY 10/21/24 12/22/24 Al hyd-Mg tr-alg ac-sod bicarb 80 2 tab PO Q4H PRN Acid Reflux 11/13/24 12/22/24 mg-20 mg chewable tablet cranberry extract 250 mg tablet 250 mg PO TID 11/13/24 12/22/24 sacubitril 24 mg-valsartan 26 mg 1 tab PO BID 11/13/24 12/22/24 tablet torsemide 20 mg tablet 20 mg PO Q OTHER DAY 11/13/24 12/22/24 vitamin B complex 1 tab PO DAILY 11/13/24 12/22/24 Previous Rx's Medication Instructions Recorded apixaban 5 mg tablet (Eliquis) 5 mg PO BID #60 tabs 10/10/20 compress.stocking,knee,reg,med #2 ea 03/29/23 compress.stocking,knee,reg,med #2 ea 07/03/23 fluconazole 100 mg tablet 400 mg (4 x 100 mg) PO QAM 12 days 12/22/24 #48 tabs metoprolol succinate 25 mg 25 mg PO QAM #30 tabs 12/22/24 tablet,extended release 24 hr phenazopyridine 100 mg tablet 100 mg PO TID PRN dysuria #6 tabs 12/22/24 (Pyridium) Results & Data (ED) Vital Signs Vital Signs - 24 hr 12/22/24 20:09 12/22/24 20:20 12/22/24 20:20 Temperature 37 C Temperature Source Oral Pulse Rate 83 Pulse Rate [Apical] Pulse Rate [Radial] 82 Respiratory Rate 17 16 Respiratory Effort / Characteristics Non-Labored Respiratory Depth Normal Respiratory Pattern Regular Blood Pressure 110/76 Blood Pressure [Right Arm] 110/76 Blood Pressure Mean 87 Blood Pressure Mean [Right Arm] 87 Pulse Oximetry 94 92 92 Oxygen Delivery Method Room Air Room Air Room Air Oxygen Flow Rate Sepsis Recent Fever Within 48 Hours No Sepsis New/Unexplained Change in Mental Status No Sepsis Action Taken by Nursing No Action Required 12/22/24 20:24 12/22/24 21:09 12/22/24 22:00 Temperature Temperature Source Pulse Rate 95 H Pulse Rate [Apical] 81 81 Pulse Rate [Radial] Respiratory Rate 16 17 Respiratory Effort / Characteristics Non-Labored Non-Labored Respiratory Depth Normal Normal Respiratory Pattern Regular Regular Blood Pressure Blood Pressure [Right Arm] 107/70 117/70 Blood Pressure Mean Blood Pressure Mean [Right Arm] 82 85 Pulse Oximetry 95 96 Oxygen Delivery Method Room Air Room Air Oxygen Flow Rate 2 Sepsis Recent Fever Within 48 Hours Sepsis New/Unexplained Change in Mental Status Sepsis Action Taken by Residential Medications Current Medication List: was personally reviewed by me Laboratory Data Attestation: I reviewed the patient's lab results. 12/22/24 20:58 12/22/24 20:58 Lab Results 12/22/24 Range/Units 20:58 WBC 10.15 (4.8-10.8) K/ul RBC 4.42 L (4.70-6.10) M/uL Hgb 12.4 L (14.0-18.0) g/dl Hct 38.3 L (42.0-52.0) % MCV 86.7 (80.0-100.0) fL MCH 28.1 (25.0-34.0) pg MCHC 32.4 (32.0-36.0) g/dL RDW Std Deviation 50.2 H (36.4-46.3) fL RDW Coeff of Linette 15.9 H (11.5-14.5) % Plt Count 200 (130-400) K/uL MPV 9.9 (9.4-12.4) fL Immature Gran % (Auto) 0.3 % Neut % (Auto) 85.6 % Lymph % (Auto) 5.8 % [place] % (Auto) 7.1 % Eos % (Auto) 0.9 % Baso % (Auto) 0.3 % Neut # (Auto) 8.69 H (1.40-6.50) K/uL Lymph # (Auto) 0.59 L (1.20-3.40) K/uL [place] # (Auto) 0.72 H (0.11-0.59) K/uL Eos # (Auto) 0.09 (0.00-0.50) K/uL Baso # (Auto) 0.03 (0.00-0.20) K/uL Immature Gran # (Auto) 0.03 (0.01-0.20) K/uL Sodium 135 L (136-145) mmol/L Potassium 3.8 (3.5-5.1) mmol/L Chloride 101 (98-107) mmol/L Carbon Dioxide 27 (21-32) mmol/L Anion Gap 7 (3-11) BUN 16 (6-23) mg/dl Creatinine 1.14 (0.6-1.4) mg/dl Est Cr Clr Drug Dosing 44.2 ml/min eGFR 62.25 BUN/Creatinine Ratio 14.0 (10-20) Glucose 177 H (70-99(Fasting)) mg/dl Calcium 8.8 (8.6-10.3) mg/dl Magnesium 1.7 (1.7-2.4) mg/dl Total Bilirubin 0.8 (0.2-1.0) mg/dl AST 16 (13-39) U/L ALT 10 (7-52) U/L Alkaline Phosphatase 58 (34-104) U/L Troponin I High Sens 59.7 H* (0-20) pg/ml Total Protein 7.0 (6.0-8.3) gm/dl Albumin 3.3 L (3.4-5.0) gm/dl Globulin 3.7 (2.5-4.0) gm/dl Albumin/Globulin Ratio 0.9 (0.9-2) TSH 5.566 H (0.300-4.500) uIu/ml Free T4 0.94 (0.61-1.60) ng/dl Administered Medications Magnesium Sulfate/Dextrose (Magnesium Sulfate / D5w) 1 gm in 100 mls @ 50 mls/hr IV Q2H LES Stop: 12/23/24 04:41 Last Admin: 12/22/24 23:52 Dose: 50 mls/hr Documented By: tcm Discontinued Medications Potassium Chloride (Potassium Chloride 10 Meq Tabcr) 20 meq PO NOW STA Stop: 12/22/24 22:43 Last Admin: 12/22/24 23:52 Dose: 20 meq Documented By: tcm Imaging Data Radiologist's Impression: Head CT 12/22/24 20:15 Exam(s): CT HEAD Without Contrast EXAM: CT Head Without Intravenous Contrast CLINICAL HISTORY: Reason for exam: CHI, on thinners. TECHNIQUE: Axial computed tomography images of the head/brain without intravenous contrast. CTDI is 43.42 mGy and DLP is 802.19 mGy-cm. Automated exposure control was utilized for the study. A dose lowering technique was utilized adhering to the principles of ALARA. COMPARISON: None FINDINGS: Brain: No acute infarct or hemorrhage identified. No extra-axial fluid collection. No mass effect or midline shift. Scattered areas of hypoattenuation in the supratentorial white matter likely represent chronic small vessel ischemic changes. Ventricles and sulci: Prominence of the ventricles and sulci is likely secondary to cerebral volume loss. Bones: Normal. No bony lesion or acute fracture. Subcutaneous tissues: Normal. Sinuses: Mild mucosal thickening in the ethmoid air cells. Mastoid air cells: Normal. Orbits: Right lens implant. Other: Atherosclerotic calcifications in the intracranial vasculature. IMPRESSION: 1. No acute intracranial abnormality. 2. Chronic small vessel ischemic changes and cerebral volume loss. Electronically signed by: Enoc Hills M.D. 12/22/24 21:13 PM Chest X-Ray 12/22/24 20:42 Exam(s): XR CXR 1 VIEW EXAM: XR Chest, 1 View CLINICAL HISTORY: Reason for exam: weakness. TECHNIQUE: Frontal view of the chest. COMPARISON: Chest radiograph on 08/28/2021 FINDINGS: Hardware: None. Lungs/pleura: Normal. No focal consolidation. No pleural effusion or pneumothorax. Heart/mediastinum: Mild enlargement of the cardiac silhouette. Atherosclerotic changes in the aorta. Soft tissues: Unremarkable. Bones: No acute fracture. Upper abdomen: Normal. IMPRESSION: No acute disease identified. Electronically signed by: Enoc Hills M.D. 12/22/24 21:38 PM Discharge Plan Visit Data Chief Complaint: Fall Stated Complaint: GLF, HIT HEAD, ON BLOOD THINNERS ED Provider: Rudi Low Discharge Problem: Ventricular tachycardia, non-sustained, Chronic anticoagulation, A-fib, Elevated troponin, CHI (closed head injury) Patient Disposition: Admitted As Inpatient Condition: Good Discharge Instructions Interventions: ED Discharge Assessment Last Done: 12/22/24 22:43 Discharge Problem: A-fib Qualifiers: Atrial fibrillation type: unspecified Qualified Code(s): I48.91 - Unspecified atrial fibrillation CHI (closed head injury) Qualifiers: Encounter type: initial encounter Qualified Code(s): S09.90XA - Unspecified injury of head, initial encounter
--- NOTE | 2024-12-22 21:14 | CT Scan Report ---
Exam(s): CT HEAD Without Contrast EXAM: CT Head Without Intravenous Contrast CLINICAL HISTORY: Reason for exam: CHI, on thinners. TECHNIQUE: Axial computed tomography images of the head/brain without intravenous contrast. CTDI is 43.42 mGy and DLP is 802.19 mGy-cm. Automated exposure control was utilized for the study. A dose lowering technique was utilized adhering to the principles of ALARA. COMPARISON: None FINDINGS: Brain: No acute infarct or hemorrhage identified. No extra-axial fluid collection. No mass effect or midline shift. Scattered areas of hypoattenuation in the supratentorial white matter likely represent chronic small vessel ischemic changes. Ventricles and sulci: Prominence of the ventricles and sulci is likely secondary to cerebral volume loss. Bones: Normal. No bony lesion or acute fracture. Subcutaneous tissues: Normal. Sinuses: Mild mucosal thickening in the ethmoid air cells. Mastoid air cells: Normal. Orbits: Right lens implant. Other: Atherosclerotic calcifications in the intracranial vasculature. IMPRESSION: 1. No acute intracranial abnormality. 2. Chronic small vessel ischemic changes and cerebral volume loss. Electronically signed by: Enoc Hills M.D. 12/22/24 21:13 PM
[2024-12-22 21:32] LABS: Alanine Aminotransferase 10.0 U/L (7-52); Albumin Globulin Ratio 0.9 (0.9-2); Albumin Level 3.3 gm/dl (3.4-5.0); Alkaline Phosphatase 58.0 U/L (34-104); Anion Gap 7.0 (3-11); Bilirubin,Total 0.8 mg/dl (0.2-1.0); Blood Urea Nitrogen 16.0 mg/dl (6-23); Calcium 8.8 mg/dl (8.6-10.3); Carbon Dioxide 27.0 mmol/L (21-32); Chloride 101.0 mmol/L (98-107); Creatinine Clr Calc Pharmacy 44.2 ml/min; Globulin 3.7 gm/dl (2.5-4.0); Glucose 177.0 mg/dl (70-99(Fasting)); Magnesium 1.7 mg/dl (1.7-2.4); Potassium 3.8 mmol/L (3.5-5.1); Sodium 135.0 mmol/L (136-145); Total Protein 7.0 gm/dl (6.0-8.3)
--- NOTE | 2024-12-22 21:39 | XRay Report ---
Exam(s): XR CXR 1 VIEW EXAM: XR Chest, 1 View CLINICAL HISTORY: Reason for exam: weakness. TECHNIQUE: Frontal view of the chest. COMPARISON: Chest radiograph on 08/28/2021 FINDINGS: Hardware: None. Lungs/pleura: Normal. No focal consolidation. No pleural effusion or pneumothorax. Heart/mediastinum: Mild enlargement of the cardiac silhouette. Atherosclerotic changes in the aorta. Soft tissues: Unremarkable. Bones: No acute fracture. Upper abdomen: Normal. IMPRESSION: No acute disease identified. Electronically signed by: Enoc Hills M.D. 12/22/24 21:38 PM
[2024-12-22 21:48] LABS: Thyroid Stimulating Hormone 5.566 uIu/ml (0.300-4.500)
[2024-12-22 22:14] LABS: Hematocrit (blood only) 38.3 % (42.0-52.0); Hemoglobin 12.4 g/dl (14.0-18.0); Immature Granulocytes # (auto) 0.03 K/uL (0.01-0.20); Immature Granulocytes % (auto) 0.3 %; Mean Corpuscular Hemoglobin 28.1 pg (25.0-34.0); Mean Corpuscular Volume 86.7 fL (80.0-100.0); Platelet Count 200 K/uL (130-400); RDW Standard Deviation 50.2 fL (36.4-46.3); Red Blood Count 4.42 M/uL (4.70-6.10); White Blood Count 10.15 K/ul (4.8-10.8)
--- NOTE | 2024-12-22 22:25 | History & Physical Report ---
Date of Service December 22, 2024 Assessment & Plan (1) CHI (closed head injury): (2) Elevated troponin: (3) Ventricular tachycardia, non-sustained: (4) UTI (urinary tract infection): (5) Dementia: (6) (HFpEF) heart failure with preserved ejection fraction: Plan 89yo male presenting after ground level fall resulting in minor head trauma. Patient with several runs of NSVT in the ER. #Ground level fall/ Closed Head Injury - patient with fall from standing. Reports he simply lost his balance. Fell backwards and hit his head. Denies LOC. He is on anticoagulation with Apixaban for history of atrial fibrillation. -Observation to medical -Neuro checks with GCS q 4 hours -Maintain fall precautions -PT/OT evaluation #Non-sustained VT - patient with several episodes of NSVT in the ER. He remains HD stable and asymptomatic -Continue Metoprolol 25mg po qAM -Will provide KCl 20mEq and IV Mag -Check 2D echo #Elevated troponin - minimal elevation in troponin 59.7 --> 66.7. Patient denies chest pain -Trend troponin to peak -Check 2D echo -Telemetry monitoring #Atrial fibrillation - rate controlled. Patient anticoagulated on Apixaban 5mg po BID -Continue Apixaban 5mg po BID -Continue Metoprolol 25mg po daily -Telemetry monitoring #UTI -patient with recent maureen UTI -Continue Fluconazole -Continue Pyridium #HF with mildly reduced EF - patient appears euvolemic to slightly hypovolemic -He typically takes Demadex 20mg po QOD - will hold this for now -Continue Entresto -Continue Metoprolol #Dementia - patient oriented at present, able to answer questions -Frequent orientation -Delirium prevention strategies -Continue Escitalopram History of Present Illness Chief Complaint: Fall, head trauma Primary Care Provider: DO Johnny Dey Maribel is a pleasant 89yo male with history of AF, moderate (echo 11/04/24 with mean gradient 9.9mmHg), HFrEF (40-45%) and atrial fibrillation on Apixaban anticoagulation presenting after a fall at [facility]. Patient was recent admitted to [facility] from 12/20 - 12/22/24. He initially presented to [facility] with right flank pain. He was transferred to [facility] for Urology evaluation. Patient was found to have right sided obstructive uropathy and bilateral non- obstructing renal calculi. His urine culture from 12/20/24 was POSITIVE for maureen albicans. He went to the OR on 12/20/24 and had cystoscopy with RIGHT ureteral stent placement with Dr. Mantilla. Patient was restarted on his Metoprolol for management of atrial fibrillation as well as CHF. He was ultimately discharged back to [facility] on Fluconazole 400mg daily x 14 days. Patient's daughter reports patient was quite weak today trying to get out of the car. He was attempting to ambulate with his walker at his personal custodial when he lost his balance and fell backwards. Patient reports hitting his posterior head. Did not lose consciousness. No complaints at present. Denies headache, neck pain. No additional complaints. While in the ER he did have several runs of NSVT. Asymptomatic. HD stable ER Course: Magnesium 1gm Potassium 20mEq Allergies Allergy/AdvReac Type Severity Reaction Status Date / Time hydrocodone Allergy Unknown Unknown Verified 11/17/24 08:46 Home Medications Medication Instructions Recorded Confirmed Type apixaban 5 mg tablet (Eliquis) 5 mg PO BID #60 tabs 10/10/20 12/22/24 Rx escitalopram oxalate 10 mg tablet 10 mg PO DAILY 10/05/21 12/22/24 History tamsulosin 0.4 mg capsule 0.4 mg PO DAILY 10/05/21 12/22/24 History acetaminophen 325 mg capsule 325 mg PO QID PRN Pain 05/16/22 12/22/24 History (Tylenol) compress.stocking,knee,reg,med #2 ea 03/29/23 12/22/24 Rx gabapentin 300 mg capsule 300 mg PO DAILY 04/01/23 12/22/24 History compress.stocking,knee,reg,med #2 ea 07/03/23 12/22/24 Rx cetirizine 10 mg tablet 10 mg PO DAILY 02/06/24 12/22/24 History lidocaine HCl 4 % topical cream 1 applic topical BID 10/21/24 12/22/24 History (Aspercreme (lidocaine HCl)) omeprazole 40 mg capsule,delayed 40 mg PO DAILY 10/21/24 12/22/24 History release rosuvastatin 10 mg tablet 10 mg PO DAILY 10/21/24 12/22/24 History Al hyd-Mg tr-alg ac-sod bicarb 80 2 tab PO Q4H PRN Acid Reflux 11/13/24 12/22/24 History mg-20 mg chewable tablet cranberry extract 250 mg tablet 250 mg PO TID 11/13/24 12/22/24 History sacubitril 24 mg-valsartan 26 mg 1 tab PO BID 11/13/24 12/22/24 History tablet torsemide 20 mg tablet 20 mg PO Q OTHER DAY 11/13/24 12/22/24 History vitamin B complex 1 tab PO DAILY 11/13/24 12/22/24 History fluconazole 100 mg tablet 400 mg (4 x 100 mg) PO QAM 12 days 12/22/24 Rx #48 tabs metoprolol succinate 25 mg 25 mg PO QAM #30 tabs 12/22/24 Rx tablet,extended release 24 hr phenazopyridine 100 mg tablet 100 mg PO TID PRN dysuria #6 tabs 12/22/24 Rx (Pyridium) Past Med/Surg History Problem List (Updated 12/23/24 @ 02:30 by Chante Bedolla DO) UTI (urinary tract infection) CHI (closed head injury) (Acute) Elevated troponin (Acute) A-fib (Acute) Chronic anticoagulation (Acute) Ventricular tachycardia, non-sustained (Acute) Encounter for pre-operative examination Ureterolithiasis Cardiomyopathy Severe aortic stenosis HLD (hyperlipidemia) HTN, goal below 130/80 Heart failure with reduced ejection fraction Dysphagia Dysphonia Parkinsonism Trigger finger Aortic stenosis Idiopathic polyneuropathy Numbness and tingling in both hands Dementia Cognitive impairment Ambulatory dysfunction Cerebrovascular disease Rotator cuff tear, right COVID-19 (Acute) (HFpEF) heart failure with preserved ejection fraction TIA (transient ischemic attack) Sleep disturbances (Chronic) Sinus bradycardia (Chronic) Sick sinus syndrome (Chronic) Permanent atrial fibrillation (Chronic) Nephrolithiasis (Chronic) Mitral regurgitation (Chronic) 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) Hyperlipidemia (Chronic) Hearing loss (Chronic) Gout, joint (Chronic) Carpal tunnel syndrome, bilateral Chronic anticoagulation (Chronic) Other and unspecified hyperlipidemia (Chronic 03/20/10) Generalized anxiety disorder (Chronic) Medical History Hypertension correction resident [facility] [place] Trigger finger TIA (transient ischemic attack) Severe aortic stenosis Parkinsonism Mitral regurgitation Idiopathic polyneuropathy HFrEF (heart failure with reduced ejection fraction) Dysphonia Dysphagia History of COVID-19 Cognitive impairment Gout SSS (sick sinus syndrome) Hx of renal calculi CVD (cerebrovascular disease) Dementia Unspecified hearing loss Sleep disorder Paresthesia of skin Nonrheumatic mitral (valve) insufficiency Hyperlipidemia Difficulty walking Generalized anxiety disorder Carpal tunnel syndrome Bradycardia Atrial fibrillation Sprain of knee Surgical History History of tonsillectomy History of cystoscopy Family History Mother Stroke Myocardial infarction Father Coronary heart disease Kidney disease Aunt Breast cancer Denies family history of Prostate cancer Diabetes Lung cancer Colorectal cancer Social History Smoking Status: Current some day smoker Tobacco Type: Cigars Cigarettes Per Day: 5 cigars per week; Second Hand Exposure: No; Do You Dip or Chew Tobacco: No; Hx Alcohol Use: Yes Alcohol type: beer, wine and hard liquor Alcohol Intake Frequency Comment: social Hx Substance Use: No Preferred Language: Jordanian Communication Ability: Effective Visual Impairment: Limited Hearing Ability: Normal Record Producer Required: No Beliefs That Will Affect Care: None marital status: Current Living Situation: Alone and Personal Care Facility Current Living Situation Comment: [facility] current occupational status: retired and other 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 How many Children do You have: 1 Feels Safe at Home: Yes Childhood Exposure to Second-Hand Smoke: Yes Diet: regular caffeine: Yes (coffee and tea ) Dental Care, Regularly: Yes Physical Activity Frequency: Daily Physical Activity Frequency Comment: walk, stength Seatbelt Use: always Sunscreen Use: No Assistive Devices: Walker Review of Systems Review of Systems: All systems reviewed & are unremarkable except as noted in HPI & below Physical Exam Physical Exam: General: patient resting comfortably, NAD, non-toxic in appearance, AA&O x 4 Skin: warm, dry, intact, no rashes or lesions,, dry skin on legs HEENT: NC/AT, PERRL, EOMI, anicteric sclera, conjunctiva without injection, external ear normal to inspection and nontender, nares patent, moist mucus membranes, dentition intact, no oropharyngeal lesions, neck supple, trachea midline, no LAD, no thyromegaly, no JVD Heart: +S1/S2, irregularly irregular, no m/r/g Lungs: equal air entry bilaterally, no rales/rhonchi/wheezes Abd: +BS, soft, NT/ND, no masses/organomegaly/ascites Ext: warm, 2+ pulses in UE/LE bilaterally, no clubbing/cyanosis or edema Neuro: nonfocal, patient AA&O x 4, speech intact, no facial droop, moving all extremities on command with equal strength 5/5 Results & Data Results & Data Vital Signs (Past 12 Hours) Vital Signs Temp Pulse Pulse Pulse Resp BP BP 12/22/24 22:00 81 17 117/70 12/22/24 21:09 81 16 107/70 12/22/24 20:24 95 H 12/22/24 20:20 12/22/24 20:20 37 C 83 16 110/76 12/22/24 20:09 82 17 110/76 Pulse Ox O2 Del Method O2 Flow Rate 12/22/24 22:00 96 Room Air 2 12/22/24 21:09 95 Room Air 12/22/24 20:24 12/22/24 20:20 92 Room Air 12/22/24 20:20 92 Room Air 12/22/24 20:09 94 Room Air Laboratory Results Laboratory Results WBC 10.15 K/ul (4.8-10.8) 12/22/24 20:58 RBC 4.42 M/uL (4.70-6.10) L 12/22/24 20:58 Hgb 12.4 g/dl (14.0-18.0) L 12/22/24 20:58 Hct 38.3 % (42.0-52.0) L 12/22/24 20:58 MCV 86.7 fL (80.0-100.0) 12/22/24 20:58 MCH 28.1 pg (25.0-34.0) 12/22/24 20:58 MCHC 32.4 g/dL (32.0-36.0) 12/22/24 20:58 RDW Std Deviation 50.2 fL (36.4-46.3) H 12/22/24 20:58 RDW Coeff of Linette 15.9 % (11.5-14.5) H 12/22/24 20:58 Plt Count 200 K/uL (130-400) 12/22/24 20:58 MPV 9.9 fL (9.4-12.4) 12/22/24 20:58 Immature Gran % (Auto) 0.3 % 12/22/24 20:58 Neut % (Auto) 85.6 % 12/22/24 20:58 Lymph % (Auto) 5.8 % 12/22/24 20:58 Guadalupe % (Auto) 7.1 % 12/22/24 20:58 Eos % (Auto) 0.9 % 12/22/24 20:58 Baso % (Auto) 0.3 % 12/22/24 20:58 Neut # (Auto) 8.69 K/uL (1.40-6.50) H 12/22/24 20:58 Lymph # (Auto) 0.59 K/uL (1.20-3.40) L 12/22/24 20:58 Guadalupe # (Auto) 0.72 K/uL (0.11-0.59) H 12/22/24 20:58 Eos # (Auto) 0.09 K/uL (0.00-0.50) 12/22/24 20:58 Baso # (Auto) 0.03 K/uL (0.00-0.20) 12/22/24 20:58 Immature Gran # (Auto) 0.03 K/uL (0.01-0.20) 12/22/24 20:58 Sodium 135 mmol/L (136-145) L 12/22/24 20:58 Potassium 3.8 mmol/L (3.5-5.1) 12/22/24 20:58 Chloride 101 mmol/L (98-107) 12/22/24 20:58 Carbon Dioxide 27 mmol/L (21-32) 12/22/24 20:58 Anion Gap 7 (3-11) 12/22/24 20:58 BUN 16 mg/dl (6-23) 12/22/24 20:58 Creatinine 1.14 mg/dl (0.6-1.4) 12/22/24 20:58 Est Cr Clr Drug Dosing 44.2 ml/min 12/22/24 20:58 eGFR 62.25 12/22/24 20:58 BUN/Creatinine Ratio 14.0 (10-20) 12/22/24 20:58 Glucose 177 mg/dl (70-99(Fasting)) H 12/22/24 20:58 Calcium 8.8 mg/dl (8.6-10.3) 12/22/24 20:58 Magnesium 1.7 mg/dl (1.7-2.4) 12/22/24 20:58 Total Bilirubin 0.8 mg/dl (0.2-1.0) 12/22/24 20:58 AST 16 U/L (13-39) 12/22/24 20:58 ALT 10 U/L (7-52) 12/22/24 20:58 Alkaline Phosphatase 58 U/L (34-104) 12/22/24 20:58 Troponin I High Sens 66.7 pg/ml (0-20) H* 12/22/24 22:34 Total Protein 7.0 gm/dl (6.0-8.3) 12/22/24 20:58 Albumin 3.3 gm/dl (3.4-5.0) L 12/22/24 20:58 Globulin 3.7 gm/dl (2.5-4.0) 12/22/24 20:58 Albumin/Globulin Ratio 0.9 (0.9-2) 12/22/24 20:58 TSH 5.566 uIu/ml (0.300-4.500) H 12/22/24 20:58 Free T4 0.94 ng/dl (0.61-1.60) 12/22/24 20:[address] 12/22/24 20:15 Exam(s): CT HEAD Without Contrast EXAM: CT Head Without Intravenous Contrast CLINICAL HISTORY: Reason for exam: CHI, on thinners. TECHNIQUE: Axial computed tomography images of the head/brain without intravenous contrast. CTDI is 43.42 mGy and DLP is 802.19 mGy-cm. Automated exposure control was utilized for the study. A dose lowering technique was utilized adhering to the principles of ALARA. COMPARISON: None FINDINGS: Brain: No acute infarct or hemorrhage identified. No extra-axial fluid collection. No mass effect or midline shift. Scattered areas of hypoattenuation in the supratentorial white matter likely represent chronic small vessel ischemic changes. Ventricles and sulci: Prominence of the ventricles and sulci is likely secondary to cerebral volume loss. Bones: Normal. No bony lesion or acute fracture. Subcutaneous tissues: Normal. Sinuses: Mild mucosal thickening in the ethmoid air cells. Mastoid air cells: Normal. Orbits: Right lens implant. Other: Atherosclerotic calcifications in the intracranial vasculature. IMPRESSION: 1. No acute intracranial abnormality. 2. Chronic small vessel ischemic changes and cerebral volume loss. Electronically signed by: Enoc Hills M.D. 12/22/24 21:13 PM Chest X-Ray 12/22/24 20:42 Exam(s): XR CXR 1 VIEW EXAM: XR Chest, 1 View CLINICAL HISTORY: Reason for exam: weakness. TECHNIQUE: Frontal view of the chest. COMPARISON: Chest radiograph on 08/28/2021 FINDINGS: Hardware: None. Lungs/pleura: Normal. No focal consolidation. No pleural effusion or pneumothorax. Heart/mediastinum: Mild enlargement of the cardiac silhouette. Atherosclerotic changes in the aorta. Soft tissues: Unremarkable. Bones: No acute fracture. Upper abdomen: Normal. IMPRESSION: No acute disease identified. Electronically signed by: Enoc Hills M.D. 12/22/24 21:38 PM ECG Additional Comments: several runs of NSVT noted on telemetry PG Care Time/CCT Total # of Minutes Spent Total Time Spent with Patient: Total time spent is greater than 50% in coordination of care (as documented) at patient's floor/unit and/or counseling patient: Coding Level of Care Code 18546 INT INP/OBS CARE 3/75MIN Diagnoses CHI (closed head injury) S09.90XA Encounter type: initial encounter Elevated troponin R79.89 Ventricular tachycardia, non-sustained I47.29 UTI (urinary tract infection) N39.0 Dementia F03.90 Chronic heart failure with preserved ejection fraction I50.32 Heart failure chronicity: chronic (1) CHI (closed head injury) Encounter type: initial encounter Qualified Code(s): S09.90XA - Unspecified injury of head, initial encounter (6) (HFpEF) heart failure with preserved ejection fraction Heart failure chronicity: chronic Qualified Code(s): I50.32 - Chronic diastolic (congestive) heart failure
[2024-12-22 22:40] LABS: T4 Free Thyroxine 0.94 ng/dl (0.61-1.60)
[2024-12-22] MEDS ORDERED: PHENAZOPYRIDINE HCL 100 MG TAB PO PRN (22:42)
[2024-12-22] MEDS ORDERED: ONDANSETRON INJ 2 MG/ML 2 ML VIAL IV PRN (22:42)
[2024-12-22] MEDS ORDERED: DOCUSATE SODIUM 100 MG CAP PO PRN (22:42)
[2024-12-22] MEDS: MAGNESIUM SULFATE / D5W 1 GM/100 ML BAG IV SCH (23:52)
[2024-12-22] MEDS: POTASSIUM CHLORIDE 10 MEQ TABCR PO STA (23:52)
[2024-12-23] MEDS ORDERED: TORSEMIDE 20 MG TAB PO SCH (09:00)
[2024-12-23 09:18] LABS: Hematocrit (blood only) 38.9 % (42.0-52.0); Hemoglobin 12.8 g/dl (14.0-18.0); Mean Corpuscular Hemoglobin 28.4 pg (25.0-34.0); Mean Corpuscular Volume 86.4 fL (80.0-100.0); Platelet Count 198 K/uL (130-400); RDW Standard Deviation 50.7 fL (36.4-46.3); Red Blood Count 4.50 M/uL (4.70-6.10); White Blood Count 10.15 K/ul (4.8-10.8)
--- NOTE | 2024-12-23 09:23 | XCELERA ---
[id number]
[2024-12-23 09:40] LABS: Anion Gap 9.0 (3-11); Calcium 8.8 mg/dl (8.6-10.3); Carbon Dioxide 23.0 mmol/L (21-32); Chloride 102.0 mmol/L (98-107); Potassium 3.9 mmol/L (3.5-5.1); Sodium 134.0 mmol/L (136-145)
[2024-12-23 09:45] LABS: Blood Urea Nitrogen 16.0 mg/dl (6-23); Creatinine Clr Calc Pharmacy 48.0 ml/min; Glucose 166.0 mg/dl (70-99(Fasting))
--- NOTE | 2024-12-23 10:55 | Hospitalist Progress Note ---
Date of Service December 23, 2024 Assessment & Plan (1) CHI (closed head injury): (2) Elevated troponin: (3) Ventricular tachycardia, non-sustained: (4) UTI (urinary tract infection): (5) Dementia: (6) (HFpEF) heart failure with preserved ejection fraction: Plan 89yo male presenting after ground level fall resulting in minor head trauma. Patient with several runs of NSVT in the ER. #Ground level fall/ Closed Head Injury - patient with fall from standing. Reports he simply lost his balance. Fell backwards and hit his head. Denies LOC. He is on anticoagulation with Apixaban for history of atrial fibrillation. -monitor neuro status -Maintain fall precautions -suspect weaker than baseline related to 2 [id number] admissions (hand infection, kidney stone) -PT/OT evaluation -[facility] vs SNF #Episode of inability to move RLE or RLE weakness when with his daughter, resolved Could have been TIA episode, could have been freezing episode related to his Parkinson's -known afib on apixaban, on tele monitor, Echo unchanged, will obtain carotid/vertebral duplex, AM lipid panel -consider addition of antiplatelet #Non-sustained VT - patient with several episodes of NSVT in the ER. He remains HD stable and asymptomatic. Not surprising in context of his cardiomyopathy. -Continue Metoprolol 25mg po qAM - potassium p.o. and IV magnesium given in on admission - reviewed echo today is unchanged from recent echo November 04, 2024- mid range EF of 40-45% with no RWMA's he has moderate AAS, moderate MR moderate TR elevated RVSP # myocardial demand ischemia Elevated troponin - minimal elevation in troponin with flat trend. Patient denies chest pain. no regional wall motion abnormalities on echo which is unchanged from recent previous. No evidence of acute coronary syndrome #Atrial fibrillation - rate controlled. -Continue Apixaban 5mg po BID -Continue Metoprolol 25mg po daily. bradycardic on higher dose -Telemetry monitoring #UTI -patient with recent maureen UTI, recently underwent cystoscopy with right-sided ureteral stent for obstructive uropathy by Dr. Mantilla #nephrolithiasis - usually manages prevention with lemonade at meals, works well -Continue Fluconazole - plan for total 14-day course -Start potassium citrate 10 bid since not able to do consistent lemonade in hospital. If continued outpatient dc his usual K supplement #Dysphagia - his daughter reports that he is on liquid thickener at home. No ST consults here. Perhaps started during hospitalization at another facility? -consult ST. Thickeners have not been shown to prevent aspiration events / pneumonias. Favor discontinuation #HF with mildly reduced EF - euvolemic to slightly hypovolemic on admission -He typically takes Demadex 20mg po QOD - will hold this for now - reassess for resumption tomorrow morning -Continue Entresto -Continue Metoprolol #Dementia, Parkinsonism - patient oriented at present, able to answer questions -Frequent orientation -Delirium prevention strategies -Continue Escitalopram DVT prophylaxis- anticoagulated on apixaban ambulatory dysfunction/unsteady gait, parkinsonism, dementia -PT/OT evaluations pending, hopefully able to return to [facility] soon versus needing SNF rehab I discussed plan of care at length with his daughter by phone in the room Admission and Anticipated Discharge Date Admission Date: December 22, 2024 Subjective No headache or head pain, no vertigo or dizziness, no nausea Per his daughter by phone when she was trying to get him in/out of car yesterday had had a transient episode of being unable to move his R leg, then was dragging it when he walked. Resolved. Later had fall at [facility]. Physical Exam Physical Exam: Last 24h vitals reviewed GEN: no acute distress, sitting in bed HEENT: pupils equal, sclerae anicteric, moist MM No apparent head or facial trauma. Neck supple, nontender, ROM intact RESP: normal WOB, CTAB CV: irreg irreg no systolic M, no JVD ABD: soft/nt/nd +BT : no goodwin SKIN: warm and dry, no generalized rashes NEURO: AOx person, place, and not entirely to situation. Forgetful. MIKE EOMI Face symmetric, speech normal, 5/5 bilateral UE and LE strength, no pronator drift. No tremor Results & Data Results & Data Vital Signs (Past 12 Hours) Vital Signs Pulse Pulse Resp BP Pulse Ox O2 Del Method O2 Flow Rate 12/23/24 05:59 18 96 Nasal Cannula 3 12/23/24 01:38 91 H 12/23/24 01:17 83 18 121/79 98 Room Air 12/23/24 01:14 83 18 121/79 98 Room Air 12/23/24 00:35 78 Laboratory Results white blood count 10, hemoglobin 12.8 Sodium 134 potassium 3.9 BUN 16 creatinine 1 magnesium 1.7 troponin high- sensitivity went from 59-66-56 this morning PG Care Time/CCT Total # of Minutes Spent Total Time Spent with Patient: I personally spent: 55 minutes today on clinical care activities including: reviewing chart notes and vital signs reviewing labs reviewing studies reviewing records from prior admissions examining and counseling the patient counseling the patient's family writing orders documentation Coding Level of Care Code 74614 SUB INP/OBS CARE 3/50MIN Diagnoses CHI (closed head injury) S09.90XA Encounter type: initial encounter Elevated troponin R79.89 Ventricular tachycardia, non-sustained I47.29 UTI (urinary tract infection) N39.0 Dementia F03.90 Chronic heart failure with preserved ejection fraction I50.32 Heart failure chronicity: chronic (1) CHI (closed head injury) Encounter type: initial encounter Qualified Code(s): S09.90XA - Unspecified injury of head, initial encounter (6) (HFpEF) heart failure with preserved ejection fraction Heart failure chronicity: chronic Qualified Code(s): I50.32 - Chronic diastolic (congestive) heart failure
[2024-12-23] MEDS: GABAPENTIN 300 MG CAP PO SCH (11:02)
[2024-12-23] MEDS: CETIRIZINE HCL 10 MG TABLET PO SCH (11:02)
[2024-12-23] MEDS: TAMSULOSIN HCL 0.4 MG CAP PO SCH (11:02)
[2024-12-23] MEDS: FLUCONAZOLE 100 MG TAB PO SCH (11:02)
[2024-12-23] MEDS: APIXABAN 5 MG TABLET PO SCH (11:02)
[2024-12-23] MEDS: ESCITALOPRAM OXALATE 10 MG TAB PO SCH (11:03)
[2024-12-23] MEDS: VALSARTAN/SACUBITRIL 26/24MG TAB PO SCH (11:03)
[2024-12-23] MEDS: ROSUVASTATIN CALCIUM 10 MG TAB PO SCH (11:03)
[2024-12-23] MEDS: METOPROLOL SUCC 25MG EXT REL TAB PO SCH (11:03)
[2024-12-23] MEDS: EUCERIN CR 120 GM JAR EXT SCH (11:04)
--- NOTE | 2024-12-23 13:37 | Electrocardiogram Report ---
Test Reason : Blood Pressure : */* mmHG Vent. Rate : 89 BPM Atrial Rate : * BPM P-R Int : * ms QRS Dur : 108 ms QT Int : 380 ms P-R-T Axes : * -42 13 degrees QTcB Int : 462 ms Atrial fibrillation Left axis deviation Incomplete right bundle branch block Abnormal ECG When compared with ECG of 21-Oct-2024 10:21, (unconfirmed) No significant change was found Confirmed by Jack David ([id number]) on 12/23/2024 1:36:28 PM Referred By: REFERRED SELF Confirmed By: Jack David
[2024-12-23] MEDS: POTASSIUM CITRATE 10 MEQ TAB PO SCH (14:58)
--- NOTE | 2024-12-23 15:05 | Ultrasound Report ---
CAROTID ARTERY ULTRASOUND CLINICAL HISTORY: episode RLE weak, poss TIA COMPARISON STUDY: None. TECHNIQUE: Real-time, grayscale, and color Doppler sonography of the carotid and vertebral arteries w as performed. Images were viewed in the transverse and longitudinal planes. FINDINGS: There is mild to moderate atherosclerotic plaque present within the carotid bifurcations. Velocity me asurements are listed below. COMMON CAROTID PEAK SYSTOLIC VELOCITY (CM/S): RIGHT 19 LEFT 25 ICA PEAK SYSTOLIC VELOCITY (CM/S): RIGHT 36 LEFT 40 The systolic ratios between the internal to common carotid arteries were normal. Antegrade flow is seen in the vertebral arteries. The external carotid arteries are patent. IMPRESSION: No evidence for a hemodynamically significant stenosis. ACT 112: Negative or not required by law. Electronically signed by: Fausto Umana M.D. 12/23/2024 3:03 PM
--- NOTE | 2024-12-23 17:31 | Communication Note ---
Date of Service: December 23, 2024 Left hand pain, some ecchymosis present per nursing Had fallen Ordered L hand Xrays
[2024-12-23] MEDS: ACETAMINOPHEN 325 MG TAB PO PRN (19:19)
--- NOTE | 2024-12-23 20:25 | XRay Report ---
Exam: 3 view left hand. History: Pain. Comparison:None. Findings: Mild diffuse demineralization is noted. No appreciated fracture. Joint space narrowing and productive changes of the distal interphalangeal joints most marked at the 2nd and 5th digits. Calcifications at the level of the triangular fibrocartilage complex consistent with chondrocalcinosis. Impression: Degenerative changes as described above. No appreciated acute process. Electronically signed by Bryson Lagunas 12-23-2024 8:24 PM
[2024-12-24 07:29] VITALS: RESP 20
--- NOTE | 2024-12-24 08:17 | Hospitalist Progress Note ---
Date of Service December 24, 2024 Assessment & Plan Admission and Anticipated Discharge Date Admission Date: December 22, 2024 Results & Data Results & Data Vital Signs (Past 12 Hours) Vital Signs Temp Pulse Pulse Resp BP BP Pulse Ox 12/24/24 07:27 36.2 C L 76 20 105/69 96 12/24/24 03:46 36.4 C 84 16 104/71 95 12/24/24 00:24 88 12/23/24 23:31 36.6 C 61 18 98/71 L 95 O2 Del Method 12/24/24 07:27 Room Air 12/24/24 03:46 Room Air 12/24/24 00:24 12/23/24 23:31 Room Air PG Care Time/CCT Total # of Minutes Spent Total Time Spent with Patient: Total time spent is greater than 50% in coordination of care (as documented) at patient's floor/unit and/or counseling patient: Coding
[2024-12-24 11:36] VITALS: BP 108/74; PULSE 70; TEMP 97.7; O2SAT 95
--- NOTE | 2024-12-25 12:01 | Discharge Summary ---
Discharge Summary Date of Service December 24, 2024 Principal Dx & Hospital Course #1 = Principal Diagnosis (1) Fall: Plan In summary this is an 89-year-old male who was admitted for observation after a ground-level fall. Patient had no subsequent injuries related to this; was admitted for observation as he is anticoagulated with Eliquis; given the absence of any significant injuries, no development of other complications they are discharged back to their previous facility for continued care from their recent hospitalization. The patient did have some transient episodes of hematuria during his hospitalization that preceded his return and were occurring during his previous hospitalization associated with recent stent placement by [facility] urology; suspect that this is consequential anticoagulation in the setting of her recent procedure and should continue to resolve as clinically it has become less concentrated during his hospital stay. Admission HPI Per Admitting Provider Johnny López is a pleasant 89yo male with history of AF, moderate (echo 11/04/24 with mean gradient 9.9mmHg), HFrEF (40-45%) and atrial fibrillation on Apixaban anticoagulation presenting after a fall at [facility]. Patient was recent admitted to [facility] from 12/20 - 12/22/24. He initially presented to [facility] with right flank pain. He was transferred to [facility] for Urology evaluation. Patient was found to have right sided obstructive uropathy and bilateral non- obstructing renal calculi. His urine culture from 12/20/24 was POSITIVE for maureen albicans. He went to the OR on 12/20/24 and had cystoscopy with RIGHT ureteral stent placement with Dr. Mantilla. Patient was restarted on his Metoprolol for management of atrial fibrillation as well as CHF. He was ultimately discharged back to [facility] on Fluconazole 400mg daily x 14 days. Patient's daughter reports patient was quite weak today trying to get out of the car. He was attempting to ambulate with his walker at his [facility] when he lost his balance and fell backwards. Patient reports hitting his posterior head. Did not lose consciousness. No complaints at present. Denies headache, neck pain. No additional complaints. While in the ER he did have several runs of NSVT. Asymptomatic. HD stable ER Course: Magnesium 1gm Potassium 20mEq Discharge Exam General: Elderly male in no acute distress Vital Signs: Reviewed HEENT: Moist mucous membranes; pupils equally round and reactive to light with e xtraocular motion intact Pulmonary: Symmetric chest wall excursion without restriction; clear to auscultation bilaterally Cardiovascular: Irregularly irregular rhythm with controlled rate, without m urmurs, rubs, or gallops; right radial pulse 2+ Gastrointestinal: Soft, nontender Neurologic: Cranial nerves II through XII grossly intact Skin: No injuries noted Discharge Plan Discharge Items Patient Disposition: Personal Intermediate Reason For Visit: FALL Discharge Diagnosis: Fall, without trauma Condition on Discharge: Good Activity: Resume your previous activity Non-emergency contact: Primary Care Provider Call non-emergency contact if: you have any medication questions and your symptoms worsen Follow-up/Referrals: Robert Berry DO [Primary Care Provider] - Diet: Low Fat and Low Sodium (2gm) Addtl Attending Provider Instructions: You were admitted to the [facility] after an unwitnessed fall without subsequent severe injury. Please resume your previously established medication regimen upon discharge without modification. Pending Studies at Discharge: No Stand-Alone Forms: My [facility] Skilled Items Patient informed of condition?: Yes DNR: No Discharge Level of Care: Other Communicable Disease: No Discharge Prognosis: Improving Lines: None Urinary Catheter: No Medications and DC Order Prescriptions: Continued Eliquis 5 mg tablet 5 mg PO BID Qty: 60 5RF (DME) compress.stocking,knee,reg,med Misc See Rx Instructions .Route Qty: 2 0RF Rx Instructions: As directed (DME) compress.stocking,knee,reg,med Misc See Rx Instructions .Route Qty: 2 0RF Rx Instructions: As directed acetaminophen [Tylenol] 325 mg capsule 325 mg PO QID PRN (Reason: Pain) tamsulosin 0.4 mg capsule 0.4 mg PO DAILY escitalopram oxalate 10 mg tablet 10 mg PO DAILY gabapentin 300 mg capsule 300 mg PO DAILY cetirizine 10 mg tablet 10 mg PO DAILY omeprazole 40 mg capsule,delayed release(DR/EC) 40 mg PO DAILY rosuvastatin 10 mg tablet 10 mg PO DAILY lidocaine HCl [Aspercreme (lidocaine HCl)] 4 % cream 1 applic topical BID torsemide 20 mg tablet 20 mg PO Q OTHER DAY vitamin B complex Tablet 1 tab PO DAILY Al hyd-Mg tr-alg ac-sod bicarb 80-20 mg Tablet,Chewable 2 tab PO Q4H PRN (Reason: Acid Reflux) cranberry extract 250 mg Tablet 250 mg PO TID sacubitril-valsartan 24-26 mg Tablet 1 tab PO BID fluconazole 100 mg Tablet 400 mg PO QAM 12 Days Qty: 48 0RF phenazopyridine [Pyridium] 100 mg Tablet 100 mg PO TID PRN (Reason: dysuria) Qty: 6 0RF metoprolol succinate 25 mg Tablet Extended Release 24 Hr 25 mg PO QAM Qty: 30 0RF Discharge Orders: Discharge Order (Routine); Ordered 12/24/24 Ordered By: Mane Horta Admission Data Admit Date/Time: 12/22/24 22:23 Attending Provider: Mane Horta Admit Provider: Chante Bedolla Primary Care Provider: Robert Berry Other Providers: Chante Bedolla Other Interventions: Discharge Summary Assessment (RN) Last Done: 12/24/24 11:25 Hospital Stay Data Consultations 12/22/24 21:51 ED Decision to Admit Stat Diagnostic Imagining Performed 12/22/24 20:15 CT head/brain wo con Stat 12/23/24 13:17 Carotid duplex [US carotid doppler BI] Urgent Pending Results Patient Have Any Pending Studies at Discharge: No Discharge Instructions Given to Patient (Per Discharging Provider) You were admitted to the [facility] after an unwitnessed fall without subsequent severe injury. Please resume your previously established medication regimen upon discharge without modification. Total Time Total Time Spent Total Time Spent (In Minutes): I personally spent 50 minutes in the coordination the patient's discharge including bedside counseling, physical exam, medication reconciliation, and coordination of care with case management to return to the patient's previous facility Coding Level of Care Code 36176 INP/OBS DISCH >30 MIN Diagnoses Fall W19.XXXA
--- NOTE | 2025-01-14 09:31 | Coding Query ---
A supporting diagnosis is required for the test/procedure performed on this patient in order for us to be reimbursed by the patient's insurance. Please provide a supporting diagnosis for the following test/procedure listed below next to the test name. *If there is no additional diagnosis for this patient that would support the following test/procedure please document that below next to the test/procedure. Test(s)/Procedure(s) that require a supporting diagnosis: * 27529 Non-Invasive Cerbrovascular Arterial Study DIAGNOSIS: Thank you Belem Dominguez [employer] Once completed, please kindly fax back to [phone] For questions please call [phone] [facility]
== END 2024-12-24 15:15 | disposition home or self-care (01) ==
LOC: EDINP 20:13 → ED 20:13 → SUATTDRO 22:23 → 2W 12-23 14:02